=== PATIENT | male | born 1955 | race Caucasian/White ===

== ENCOUNTER 2016-08-23 14:47 | Emergency (ER) | payer MEDICAID ==
[~2016-08-23] VITALS: Ht 182.9 cm; Wt 83.9 kg
[2016-08-23] MEDS ORDERED: LAMI1TAB7 PO (15:14)
[2016-08-23] MEDS ORDERED: trental PO (15:14)
[2016-08-23] MEDS ORDERED: TRAZ100T4 PO (15:14)
[2016-08-23] MEDS ORDERED: CLON-412 PO (15:14)
[2016-08-23] MEDS ORDERED: MIRT30TA2 PO (15:14)
[2016-08-23] MEDS ORDERED: LEVO25TA5 PO (15:14)
[2016-08-23] MEDS ORDERED: ATEN25TA PO (15:14)
[2016-08-23 16:39] LABS: BASO % 0.1 % (0.0-1.0); EOS % 0.4 % (0.0-3.0); LARGE UNSTAINED CELL # 0.1 K/mm3 (0.0-0.4); LARGE UNSTAINED CELL % 0.7 % (0.0-4.0); LYMPH # 0.7 K/mm3 (1.5-4.5); LYMPH % 7.6 % (24.0-44.0); MEAN CORPUSCULAR HEMOGLOBIN 27.5 pg (27.0-33.0); MEAN CORPUSCULAR HGB CONC 32.1 g/dl (32.0-36.5); MEAN CORPUSCULAR VOLUME 85.7 fl (80.0-96.0); MONO # 0.4 K/mm3 (0.0-0.8); MONO % 4.6 % (0.0-5.0); NEUTROPHILS # 7.4 K/mm3 (1.8-7.7); NEUTROPHILS % 86.7 % (36.0-66.0); PLATELET COUNT, AUTOMATED 205 k/mm3 (150-450); RED CELL DISTRIBUTION WIDTH 14.2 % (11.5-14.5); WHITE BLOOD COUNT 8.6 K/mm3 (4.0-10.0)
[2016-08-23 17:03] LABS: ANION GAP 11 MEQ/L (8-16); BLOOD UREA NITROGEN 8 MG/DL (7-18); CALCIUM LEVEL 8.8 MG/DL (8.5-10.1); CARBON DIOXIDE LEVEL 21 MEQ/L (21-32); CHLORIDE LEVEL 105 MEQ/L (98-107); CREATININE FOR GFR 1.08 MG/DL (0.70-1.30); GLOMERULAR FILTRATION RATE > 60.0 (>56); GLUCOSE, FASTING 113 MG/DL (70-105); SODIUM LEVEL 137 MEQ/L (136-145)
[2016-08-23] MEDS ORDERED: MORPHINE 4 MG/ML 1ML SYRINGE IV ONE (17:45)
[2016-08-23] MEDS ORDERED: ONDANSETRON 4MG/2ML VIAL (J2405) IV ONE (18:00)
[2016-08-23] MEDS ORDERED: NS 1,000 ML IV SCH (20:42)
[2016-08-23 21:56] VITALS: BP 120/84
--- NOTE | 2016-08-23 23:00 | REPUSA ---
CLINICAL HISTORY: Right hip fracture. TECHNIQUE: MR right hip. Multiplanar T1 and T2 weighted sequences were obtained COMPARISON: Same-day hip x-ray. MR RIGHT HIP WITHOUT CONTRAST: Pelvis: There is an acute fracture through the posterior aspect of the right acetabulum, producing pr otrusio acetabulum, and widening of the acetabular cup. Additional fractures of the acetabular cup ar e suspected. There is hemarthrosis of the right hip and severe diffuse edema with tracking along the sciatic neurovascular bundle and along the pelvic sidewall. Bladder: Significantly distended. Prostate: 4.3 cm diameter. IMPRESSION: Acute fracture of the right posterior acetabulum, with acute protrusio acetabuli.
--- NOTE | 2016-08-24 08:05 | REP ---
Atraumatic pain. PRIORS: None. There is significant protrusio acetabuli. This represents a significant change when compared to a KUB of 06/26/2007 which included the right hip. This finding is suspicious for a pathological fracture even through information given to me is nontraumatic pain. The findings is concerning and needs to be further investigation. Acute protrusio acetabuli is consistent with fracture. Signed by Brandon Aiken DO 08/24/2016 08:50 A
== END 2016-08-23 21:58 | disposition short-term general hospital (02) ==
LOC: EDBD 14:47 → M ED 15:56
DX: S32.401A Unspecified fracture of right acetabulum, initial encounter for closed fracture (principal); X58.XXXA Exposure to other specified factors, initial encounter; Y92.89 Other specified places as the place of occurrence of the external cause; Y93.89 Activity, other specified; Y99.9 Unspecified external cause status
CPT/HCPCS: 36415; 73502; 73723; 80048; 85025; 93041; 96374; 96375; 99285; A9576; J2405; J3360

== ENCOUNTER 2016-10-03 15:19 | Emergency (ER) | payer MEDICAID ==
[~2016-10-03] VITALS: Ht 182.9 cm; Wt 83.9 kg
[2016-10-03 15:19] VITALS: BP 122/93
[~2016-10-03 15:19] MED LIST: ATEN25TA PO; CLON-412 PO; LAMI1TAB7 PO; LEVO25TA5 PO; MIRT30TA2 PO; TRAZ100T4 PO; trental PO
[2016-10-03] MEDS ORDERED: CALC500T36 PO (15:31)
[2016-10-03] MEDS ORDERED: OXYC1TAB23 PO (15:31)
[2016-10-03] MEDS ORDERED: KEFL500C7 PO (15:44)
[2016-10-03] MEDS ORDERED: CEPHALEXIN 500 MG CAP PO ONE (15:45)
== END 2016-10-03 16:12 | disposition home or self-care (01) ==
LOC: M ED 15:46
DX: L03.115 Cellulitis of right lower limb (principal)

== ENCOUNTER 2016-10-05 23:11 | Inpatient (IN) | payer MEDICAID ==
[~2016-10-05] VITALS: Ht 182.9 cm; Wt 84.3 kg
[2016-10-05] MEDS: traZODone 100 MG TAB PO SCH (21:00)
[2016-10-05] MEDS: MIRTAZAPINE 15 MG TAB PO SCH (21:00)
[~2016-10-05 23:11] MED LIST changes: +CALC500T36 PO; +KEFL500C7 PO; +OXYC1TAB23 PO
[2016-10-05] MEDS ORDERED: NS 1,000 ML IV ONE (23:45)
[2016-10-06] MEDS ORDERED: ACETAMINOPHEN 325 MG TAB PO ONE
[2016-10-06] MEDS ORDERED: NEXI40CA PO (00:01)
[2016-10-06] MEDS ORDERED: OXYC-517 PO (00:01)
[2016-10-06] MEDS ORDERED: ASPI325T28 PO (00:01)
[2016-10-06] MEDS ORDERED: VITA500C24 PO (00:01)
[2016-10-06] MEDS ORDERED: VITAD1000T PO (00:01)
[2016-10-06] MEDS ORDERED: NICOINH INH (00:01)
[2016-10-06] MEDS ORDERED: CYCL10TA PO (00:01)
[2016-10-06] MEDS ORDERED: PENT400T19 PO (00:01)
[2016-10-06] MEDS ORDERED: CALC500C16 PO (00:01)
[2016-10-06] MEDS ORDERED: FOLI1TAB2 PO (00:01)
[2016-10-06] MEDS ORDERED: MAPA325T2 PO (00:01)
[2016-10-06] MEDS ORDERED: THIA100TA PO (00:01)
[2016-10-06] MEDS ORDERED: GABA-282 PO (00:01)
[2016-10-06] MEDS ORDERED: MIRT30TA3 PO (00:01)
[2016-10-06 00:14] LABS: BASO % 0.1 % (0.0-1.0); EOS % 0.1 % (0.0-3.0); LARGE UNSTAINED CELL # 0.3 K/mm3 (0.0-0.4); LARGE UNSTAINED CELL % 2.1 % (0.0-4.0); LYMPH # 0.6 K/mm3 (1.5-4.5); LYMPH % 4.7 % (24.0-44.0); MEAN CORPUSCULAR HEMOGLOBIN 26.9 pg (27.0-33.0); MEAN CORPUSCULAR HGB CONC 31.7 g/dl (32.0-36.5); MONO # 0.8 K/mm3 (0.0-0.8); MONO % 6.5 % (0.0-5.0); NEUTROPHILS # 10.9 K/mm3 (1.8-7.7); NEUTROPHILS % 86.6 % (36.0-66.0); PLATELET COUNT, AUTOMATED 301 k/mm3 (150-450); RED CELL DISTRIBUTION WIDTH 14.6 % (11.5-14.5); WHITE BLOOD COUNT 12.6 K/mm3 (4.0-10.0)
[2016-10-06 01:16] LABS: ALBUMIN 3.1 GM/DL (3.2-5.2); ALBUMIN/GLOBULIN RATIO 0.78 (1.00-1.93); ALKALINE PHOSPHATASE 177 U/L (45-117); ALT/SGPT 13 U/L (12-78); ANION GAP 10 MEQ/L (8-16); AST/SGOT 13 U/L (15-37); BILIRUBIN,DIRECT 0.3 MG/DL (0.0-0.2); BILIRUBIN,TOTAL 0.8 MG/DL (0.2-1.0); BLOOD UREA NITROGEN 14 MG/DL (7-18); CALCIUM LEVEL 9.3 MG/DL (8.5-10.1); CARBON DIOXIDE LEVEL 22 MEQ/L (21-32); CHLORIDE LEVEL 101 MEQ/L (98-107); CREATININE FOR GFR 1.19 MG/DL (0.70-1.30); GLOMERULAR FILTRATION RATE > 60.0 (>56); GLUCOSE, FASTING 96 MG/DL (70-105); SODIUM LEVEL 133 MEQ/L (136-145); TOTAL PROTEIN 7.1 GM/DL (6.4-8.2)
[2016-10-06] MEDS ORDERED: IMIPENEM/CILASTATIN 500 MG in D5W MINI-BAG PLUS 100 ML IV ONE (02:45)
[2016-10-06] MEDS ORDERED: VANCOMYCIN HCL 750 MG, VIAL MATE ADAPTER 1 EACH in D5W 250 ML IV ONE (02:45)
[2016-10-06] MEDS ORDERED: ACETAMINOPHEN TAB 650MG DOSE (2X325MG) PO PRN (04:00)
[2016-10-06 04:16] LABS: BASO % 0.1 % (0.0-1.0); EOS # 0.1 K/mm3 (0.0-0.50); EOS % 0.5 % (0.0-3.0); LARGE UNSTAINED CELL # 0.2 K/mm3 (0.0-0.4); LYMPH # 1.1 K/mm3 (1.5-4.5); LYMPH % 7.1 % (24.0-44.0); MEAN CORPUSCULAR HEMOGLOBIN 26.7 pg (27.0-33.0); MEAN CORPUSCULAR HGB CONC 31.8 g/dl (32.0-36.5); MEAN CORPUSCULAR VOLUME 84.1 fl (80.0-96.0); MONO # 0.9 K/mm3 (0.0-0.8); MONO % 7.5 % (0.0-5.0); NEUTROPHILS # 9.7 K/mm3 (1.8-7.7); NEUTROPHILS % 82.9 % (36.0-66.0); PLATELET COUNT, AUTOMATED 265 k/mm3 (150-450); RED CELL DISTRIBUTION WIDTH 14.6 % (11.5-14.5); WHITE BLOOD COUNT 11.7 K/mm3 (4.0-10.0)
[2016-10-06 04:28] LABS: METHADONE URINE NEGATIVE (NEGATIVE)
[2016-10-06 04:35] LABS: ERYTHROCYTE SEDIMENTATION RATE 128 mm/hr (0-20)
[2016-10-06 04:38] LABS: ALBUMIN 2.6 GM/DL (3.2-5.2); ALBUMIN/GLOBULIN RATIO 0.58 (1.00-1.93); ALKALINE PHOSPHATASE 159 U/L (45-117); ALT/SGPT 12 U/L (12-78); ANION GAP 8 MEQ/L (8-16); AST/SGOT 12 U/L (15-37); BILIRUBIN,TOTAL 0.5 MG/DL (0.2-1.0); BLOOD UREA NITROGEN 11 MG/DL (7-18); CALCIUM LEVEL 8.6 MG/DL (8.5-10.1); CARBON DIOXIDE LEVEL 24 MEQ/L (21-32); CHLORIDE LEVEL 105 MEQ/L (98-107); CREATININE FOR GFR 1.03 MG/DL (0.70-1.30); GLOMERULAR FILTRATION RATE > 60.0 (>56); GLUCOSE, FASTING 117 MG/DL (70-105); MAGNESIUM LEVEL 1.7 MG/DL (1.8-2.4); POTASSIUM SERUM 3.7 MEQ/L (3.5-5.1); SODIUM LEVEL 137 MEQ/L (136-145); TOTAL PROTEIN 7.1 GM/DL (6.4-8.2)
[2016-10-06 04:45] VITALS: BP 110/76
[2016-10-06] MEDS: NS 1,000 ML IV SCH ×2 (05:47→14:05)
[2016-10-06] MEDS ORDERED: CALCIUM CARBONATE 500 MG CHEW U/D PO PRN (06:00)
[2016-10-06] MEDS ORDERED: CYCLOBENZAPRINE 10 MG TAB PO PRN (06:00)
--- NOTE | 2016-10-06 06:27 | PHACANCOPD ---
PHARMACY VANCOMYCIN DOSING Pt Demographics Demographics Patient Age:60 , Weight:81.800 , Gender: male Adjusted Body Weight Date: 10/06/16, Adjusted Body Weight: [80] Kg Events Past 24 Hours Events Past 24 Hours: NO: Dialysis, Diuretic Therapy, Change in CrCl, Fever, Elevation in WBC, Pending Diagnostics, Pending Procedures, Other Vancomycin Vancomycin Target Ranges: 15-20 mcg/ml Vancomycin Load Y/N: Yes Load Dose Date Time Vancomycin Load Dose: 1750MG Date: 10-06 Time: 0600 Vancomycin Dose Date: 10/06/16. Current Vancomycin Dose: [1000MG Q8H] Intermittent Dosing?: No Labs Labs Item Value Date Time White Blood Count 11.7 K/mm3 H 10/06/16 0402 Creatinine 1.03 MG/DL 10/06/16 0402 Blood Urea Nitrogen 11 MG/DL 10/06/16 0402 Vital Signs Label Value Date Time Patient Temperature 100.6 degrees F 10/06/16 044 Temperature Source Temporal 10/06/16 044 Micro Microbiology 10/06/16 Blood Culture, Received Pending 10/05/16 Blood Culture, Received Pending 10/06/16 Urine Culture, Received Pending Creatinine Clearance Date:10/06/16. Creatinine Clearance: [84]. Pending Labs Trough 10-06 @2100 Assessment and Plan Maintaining Current Dose?: Yes Reason for dose change: No Dose Change Pharmacist Note Pharmacist Note Date: 10/06/16. Pharmacist note:Dosed at 1000mg q8h with a trough ordered for 05 @2100. Will continue to monitor and make adjustments as needed. APRYL AREVALO [facility] October 06, 2016 06:27
[2016-10-06] MEDS: VANCOMYCIN HCL 1,000 MG, VIAL MATE ADAPTER 1 EACH in D5W 250 ML IV SCH ×3 (06:38→21:49)
--- NOTE | 2016-10-06 06:46 | HPE ---
DATE OF ADMISSION: 10/06/2016 PRIMARY CARE PROVIDER: Lona Bustamante REASON FOR ADMISSION: Fever, hypotension. HISTORY OF PRESENT ILLNESS: The patient is 60-year-old male with past medical history significant for hypothyroidism, recent fall with right hip fracture status post surgery, history of alcohol abuse, and hypertension who presented to the emergency room today after a ground-level fall. He stated he gotten out of bed and did not use his walker and fell. Upon arrival to the emergency room, the patient was confused and a poor historian. He stated he had fallen last month resulting in a hip fracture and surgery at [facility]. In the emergency room, the patient was found to have a temperature of 102.2. He was also found to be hypotensive and tachycardiac. The hospitalist was called for the admission. REVIEW OF SYSTEMS: The patient only complained of right hip pain. He denied any chest pain or palpitation. Denied any shortness of breath or cough. No nausea or vomiting. Denied any abdominal pain. Was complaining of lower extremity swelling, stated that it had been like that since the surgery last month, but no pain in the lower extremities and no focal deficits. PAST MEDICAL HISTORY: 1. Hypothyroidism. 2. Hypertension. 3. Hip surgery. 4. history of alcohol dependence 5. history of alcohol hepatitis 6. history of seizures PAST SURGICAL HISTORY: 1. Right hip surgery. 2. Breast biopsy/ ALLERGIES: - PENICILLIN (reaction unknown) SOCIAL HISTORY: The patient used to drink heavily in the past, but stated he quit over a year ago. He smokes 10 cigarettes a day for 40 years. He lives at home alone. Denies any drug use. FAMILY HISTORY: Noncontributory. HOME MEDICATIONS: - Tylenol 2 tablets as needed pain - vitamin C 500 mg daily - aspirin 325 mg daily - atenolol 25 mg by mouth daily - cyclobenzaprine 1 tablet by mouth three times a day as needed pain - Nexium 40 mg daily - folic acid 1 mg daily - gabapentin 300 mg by mouth three times a day - Lamictal 50 mg by mouth twice a day - Synthroid 25 mcg by mouth daily - mirtazapine 30 mg at bedtime - oxycodone 1 tablet by mouth every 4 hours as needed for pain - pentoxifylline 400 mg by mouth three times a day - thiamine 100 mg by mouth daily - trazodone 100 mg by mouth at bedtime - vitamin D3 2 tablets by mouth daily PHYSICAL EXAMINATION: Vitals: Temperature was 102.2. Heart rate 127 initially. Blood pressure was 90/60. Pulse oximetry 94% on room air. Respiratory rate 20. HEENT: Pupils equal round and reactive to light and accommodation. Neck: Supple. No jugular venous distention (JVD). Lungs: Clear to auscultation (CTA) bilaterally. Cardiac: Irregular rate and rhythm. Abdomen: Soft, nontender, nondistended. Extremities: Incision site over right hip appears clean, dry, intact. Slightly warm, nontender to palpation. Neurologic: Cranial nerves II-XII grossly intact. LABORATORY FINDINGS: WBC 12.6, hemoglobin 8.2, hematocrit 25.8, platelet count 301. Sodium initially was 133, potassium 4, chloride 101, BUN 14, creatinine 1.19, fasting glucose less than 60, AST 13, ALT 13, C-reactive protein 23. Urinalysis was positive +1 bacteria. Toxicology screen positive for opiates, negative for alcohol. The patient underwent a CT of the hip pending read. ASSESSMENT/PLAN: 1. Sepsis, unknown etiology at this time. The patient has negative lactic acid of 1, but he had a fever of 102.2, hypotension and tachycardia. He was started on imipenem and vancomycin in the emergency room. We will continue. Blood and urine cultures are pending. The patient denies any upper respiratory tract infection at this time. Await x-ray of the hip. 2. History of recent hip surgery at [facility]. 3. Fall. We will consult physical therapy (PT) for evaluation and treat. 4. Hypertension. We will hold the patient's atenolol at this time due to hypotension secondary to sepsis. 5. History of alcohol dependence 6. History of alcoholic hepatitis 7. History of seizures; resume home medications 8. Deep vein thrombosis (DVT) prophylaxis. Lovenox 40 mg subcutaneously daily. MTDD
--- NOTE | 2016-10-06 07:56 | REP ---
Clinical: Fever. Technique: AP and lateral. Comparison: 09/05/2014. Findings: Mediastinum and cardiac silhouette are stable. Moderate hiatal hernia is again suggested. Lung joseph demonstrate chronic interstitial changes. No focal consolidation, effusion, or pneumothorax. Healed left rib fractures represent a relative change compared to prior examination from 2014. Impression: Stable hiatal hernia. Left rib fractures are relatively new compared to prior examination. No focal consolidation. Signed by Reynold oMura MD 10/06/2016 07:48 A
[2016-10-06 08:00] VITALS: BP 97/66
--- NOTE | 2016-10-06 08:01 | REP ---
Clinical: Trauma. Technique: AP view of the pelvis with neutral and frog lateral views of the right hip. Findings: Evidence for prior right pelvic fracture fixation with orthopedic hardware in satisfactory position. Age-related degenerative changes are noted. There is no evidence for acute fracture or dislocation. Impression: No acute fracture dislocation identified. Signed by Reynold Moura MD 10/06/2016 07:53 A
[2016-10-06] MEDS: VITAMIN D 1,000 INTERNATIONAL UNITS TABLET PO SCH (08:23)
[2016-10-06] MEDS: PENTOXIFYLLINE 400 MG TAB PO SCH ×3 (08:23→20:27)
[2016-10-06] MEDS: FOLIC ACID 1 MG TAB PO SCH (08:23)
[2016-10-06] MEDS: PANTOPRAZOLE 40MG TAB (PROTONIX) PO SCH (08:24)
[2016-10-06] MEDS: ASCORBIC ACID 500 MG TAB PO SCH (08:24)
[2016-10-06] MEDS: THIAMINE 100 MG TAB PO SCH (08:24)
[2016-10-06] MEDS: GABAPENTIN 300 MG CAP PO SCH ×3 (08:24→20:27)
[2016-10-06] MEDS: lamoTRIgine 100MG TAB PO SCH ×2 (08:24→20:27)
[2016-10-06] MEDS: ENOXAPARIN 40 MG/0.4 ML SYRINGE (J1650) SC SCH (08:25)
[2016-10-06] MEDS: IMIPENEM/CILASTATIN 250 MG in D5W MINI-BAG PLUS 100 ML IV SCH ×3 (08:25→20:25)
[2016-10-06] MEDS ORDERED: ENOXAPARIN 40 MG/0.4 ML SYRINGE (J1650) SC SCH (09:00)
--- NOTE | 2016-10-06 09:10 | REP ---
Clinical: Bilateral lower extremity swelling . Technique: Gonzalez scale and color Doppler evaluation using linear high frequency transducer. Findings: Ultrasound examination of the right and left lower extremity deep venous structures from the common femoral vein to the popliteal vein demonstrates normal compressibility flow and wave patterns in response to respiration and augmentation. There is no evidence for deep venous thrombosis. Impression: No evidence for deep venous thrombosis. Signed by Reynold Moura MD 10/06/2016 09:01 A
--- NOTE | 2016-10-06 10:32 | CR.PDOC ---
[facility] Consultation Consultation DATE OF CONSULTATION: October 06, 2016 at 04:00 REFERRING PROVIDER: Dr. Fraga ATTENDING PHYSICIAN: Dr. Jatinder Bal REASON FOR CONSULTATION/CHIEF COMPLAINT: feers s/p R acetabular ORIF. HISTORY OF PRESENT ILLNESS: Patient is a 60y/o alcoholic male who is 2 months s/ p R acetabular ORIF at [facility] who had a syncopal fall at his home last night. He was brought to the [facility] ER by ambulance and found to have fever and tachycardia and was admitted to the PCU. Patient reports delayed wound healing of the right hip with drainage up until a few weeks ago but has since stopped. He does report chronic pain from the surgical procedure but no recent acute increase in pain. Patient has no recollection of the fall. ALLERGIES: Please see below. HOME MEDICATIONS: Please see below. PAST MEDICAL HISTORY: 1. hypothyroidism. PAST SURGICAL HISTORY: 1. ORIF R acetabulum per HPI 2. breast biopsy FAMILY HISTORY: non contributory SOCIAL HISTORY: Lives alone in [place], [place]. Previously worked construction but currently unemployed. 1/2 ppd smoker. heavy daily drinker. REVIEW OF SYSTEMS: CONSTITUTIONAL: + fevers. CARDIOVASCULAR: no chest pain or palpitations. RESPIRATORY: no cough, wheeze, SOB. GENITOURINARY: no pain or burning with urination. MUSCULOSKELETAL: + recent acetabular ORIF per HPI. GASTROINTESTINAL: no nausea, vomiting, diarrhea. PHYSICAL EXAMINATION: VITAL SIGNS: Please see below. GENERAL APPEARANCE: appears older than stated age, NAD. HEENT: normocephalic, atraumatic. RESPIRATORY: non labored breathing. CARDIOVASCULAR: 2+ DP, PT pulses RLE. EXTREMITIES: R hip wound c/d/i/. minimal surrounding erythema, induration, or drainage. No pain with logroll of the hip. No pain with axial load. NEUROLOGICAL: sensation/motor intact in RLE tibial, sural, saphenous, SPN, DPN distribution. LABORATORY DATA: Please see below. Plain radiographs of the right hip demonstrate acetabular ORIF fixation construct with apparent anatomic reduction. No evidence of hardware loosening or failure. DVT ultrasound demonstrates no evidence of RLE VTE ASSESSMENT/PLAN: 60 y/o male with history of R aetabular ORIF who sustained syncopal fall with low grade fevers. No drainage from wound. Acute R hip post op infection unlikely. 1. Given the delayed wound healing, it is possible that there is a chronic infection, however given that there is no acute drainage from the wound or surrounding erythema, and there is no pain with hip logroll or axial load, an acute hip infection is an unlikely source for his fevers and tachycardia. 2. Recommend continued workup of his fevers/tachycardia per PCU team 3. Patient has scheduled follow up with operative surgeon in [place] on 14 October which should be maintained. 4. If primary team does not find another source, recommend transfer to [facility] for management of R acetabulum Vital Signs/I&O Vital Signs Date Time Temp Pulse Resp B/P (MAP) Pulse Ox O2 Delivery O2 Flow Rate FiO2 10/06/16 08:00 100.8 133 18 97/66 (76) 98 Room Air I&O- Last 24 Hours up to 6 AM 10/06/16 06:00 Intake Total 1540 ml Output Total 900 ml Balance 640 ml Laboratory Data Labs 24H Laboratory Tests 2 10/05/16 23:54: White Blood Count 12.6H, Red Blood Count 3.04L, Hemoglobin 8.2L, Hematocrit 25.8L, Mean Corpuscular Volume 85.0, Mean Corpuscular Hemoglobin 26.9L, Mean Corpuscular Hemoglobin Concent 31.7L, Red Cell Distribution Width 14.6H, Platelet Count 301, Neutrophils (%) (Auto) 86.6H, Lymphocytes (%) (Auto) 4.7L, Monocytes (%) (Auto) 6.5H, Eosinophils (%) (Auto) 0.1, Basophils (%) (Auto) 0.1 , Neutrophils # (Auto) 10.9H, Lymphocytes # (Auto) 0.6L, Monocytes # (Auto) 0.8 , Eosinophils # (Auto) 0.0, Basophils # (Auto) 0.0, Large Unclassified Cells % 2.1, Large Unclassified Cells # 0.3, Anion Gap 10, Glomerular Filtration Rate > 60.0, Lactic Acid Level 1.0, Calcium Level 9.3, Aspartate Amino Transf (AST/SGOT ) 13L, Alanine Aminotransferase (ALT/SGPT) 13, Alkaline Phosphatase 177H, Total Bilirubin 0.8, Direct Bilirubin 0.3H, Total Protein 7.1, Albumin 3.1L, Albumin/ Globulin Ratio 0.78L, Ethyl Alcohol Level < 0.003 10/06/16 02:02: Urine Appearance CLEAR, Urine Color YELLOW, Urine pH 6.0, Urine Specific [place] 1.004, Urine Protein NEGATIVE, Urine Glucose (UA) NEGATIVE, Urine Ketones TRACEH, Urine Urobilinogen 0.2, Urine Bilirubin NEGATIVE, Urine Leukocyte Esterase NEGATIVE, Urine Blood NEGATIVE, Urine Nitrite NEGATIVE, Urine WBC (Auto) 0, Urine RBC (Auto) 2, Urine Hyaline Casts (Auto) 0, Urine Bacteria (Auto) 1+H, Urine Squamous Epithelial Cells 0, Urine Sperm (Auto) , Urine Amphetamines Screen NEGATIVE, Urine Benzodiazepines Screen NEGATIVE, Urine Opiates Screen POSITIVEH, Urine Methadone Screen NEGATIVE, Urine Barbiturates Screen NEGATIVE, Urine Phencyclidine Screen NEGATIVE, Urine Cocaine Metabolite Screen NEGATIVE, Urine Cannabinoids Screen NEGATIVE 10/06/16 04:02: White Blood Count 11.7H, Red Blood Count 2.88L, Hemoglobin 7.7L, Hematocrit 24.2L, Mean Corpuscular Volume 84.1, Mean Corpuscular Hemoglobin 26.7L, Mean Corpuscular Hemoglobin Concent 31.8L, Red Cell Distribution Width 14.6H, Platelet Count 265, Neutrophils (%) (Auto) 82.9H, Lymphocytes (%) (Auto) 7.1L, Monocytes (%) (Auto) 7.5H, Eosinophils (%) (Auto) 0.5, Basophils (%) (Auto) 0.1 , Neutrophils # (Auto) 9.7H, Lymphocytes # (Auto) 1.1L, Monocytes # (Auto) 0.9H , Eosinophils # (Auto) 0.1, Basophils # (Auto) 0.0, Large Unclassified Cells % 2.0, Large Unclassified Cells # 0.2, Anion Gap 8, Glomerular Filtration Rate > 60.0, Calcium Level 8.6, Aspartate Amino Transf (AST/SGOT) 12L, Alanine Aminotransferase (ALT/SGPT) 12, Alkaline Phosphatase 159H, Total Bilirubin 0.5, Total Protein 7.1, Albumin 2.6L, Albumin/Globulin Ratio 0.58L, Erythrocyte Sedimentation Rate 128H, Blood Urea Nitrogen 11, Creatinine 1.03, Sodium Level 137, Potassium Level 3.7, Chloride Level 105, Carbon Dioxide Level 24, Magnesium Level 1.7L, C-Reactive Protein, Quantitative 23.10H CBC/BMP Laboratory Tests 10/05/16 23:54 Red Blood Count 3.04 L, Mean Corpuscular Volume 85.0, Mean Corpuscular Hemoglobin 26.9 L, Mean Corpuscular Hemoglobin Concent 31.7 L, Red Cell Distribution Width 14.6 H, Neutrophils (%) (Auto) 86.6 H, Lymphocytes (%) (Auto ) 4.7 L, Monocytes (%) (Auto) 6.5 H, Eosinophils (%) (Auto) 0.1, Basophils (%) ( Auto) 0.1, Neutrophils # (Auto) 10.9 H, Lymphocytes # (Auto) 0.6 L, Monocytes # (Auto) 0.8, Eosinophils # (Auto) 0.0, Basophils # (Auto) 0.0 10/06/16 04:02 Red Blood Count 2.88 L, Mean Corpuscular Volume 84.1, Mean Corpuscular Hemoglobin 26.7 L, Mean Corpuscular Hemoglobin Concent 31.8 L, Red Cell Distribution Width 14.6 H, Neutrophils (%) (Auto) 82.9 H, Lymphocytes (%) (Auto ) 7.1 L, Monocytes (%) (Auto) 7.5 H, Eosinophils (%) (Auto) 0.5, Basophils (%) ( Auto) 0.1, Neutrophils # (Auto) 9.7 H, Lymphocytes # (Auto) 1.1 L, Monocytes # ( Auto) 0.9 H, Eosinophils # (Auto) 0.1, Basophils # (Auto) 0.0, Calcium Level 8.6 , Aspartate Amino Transf (AST/SGOT) 12 L, Alanine Aminotransferase (ALT/SGPT) 12 , Alkaline Phosphatase 159 H, Total Bilirubin 0.5, Total Protein 7.1, Albumin 2.6 L Microbiology Microbiology 10/06/16 Blood Culture, Received Pending 10/05/16 Blood Culture, Received Pending 10/06/16 Urine Culture, Received Pending Allergies Coded Allergies: Penicillins (Verified Allergy, Unknown, FATHER IS ALLERGIC, PATIENT HAS NEVER TAKEN, 10/03/16) Home Medications Scheduled (Nicotrol Inhaler) 10 Mg Inh, 1 PUFF INH DAILY, (Reported) Ascorbic Acid (Vitamin C) 500 Mg Cap, 500 MG PO DAILY, (Reported) Aspirin (Aspirin) 325 Mg Tab, 325 MG PO DAILY, (Reported) Atenolol (Atenolol) 25 Mg Tab, 25 MG PO DAILY, (Reported) Esomeprazole Magnesium Trihydr (Nexium) 40 Mg Cap, 40 MG PO DAILY, (Reported) Folic Acid (Folic Acid) 1 Mg Tab, 1 MG PO DAILY, (Reported) Gabapentin (Gabapentin) 300 Mg Cap, 300 MG PO TID, (Reported) Lamotrigine (Lamictal) 100 Mg Tab, 50 MG PO BID, (Reported) Levothyroxine Sodium (Synthroid) 25 Mcg Tab, 25 MCG PO DAILY, (Reported) Mirtazapine (Mirtazapine) 30 Mg Tab, 30 MG PO QHS, (Reported) Pentoxifylline (Pentoxifylline Cr) 400 Mg Tab, 400 MG PO TID, (Reported) Thiamine Hcl (Thiamine Hcl) 100 Mg Tab, 100 MG PO DAILY, (Reported) Trazodone HCl (Trazodone HCl) 100 Mg Tab, 100 MG PO QHS, (Reported) Vitamin D (Vitamin D3) 1,000 Units Tab, 2 TABS PO DAILY, (Reported) Scheduled PRN Acetaminophen (Mapap) 325 Mg Tab, 2 TABS PO Q6HP PRN for PAIN, (Reported) Calcium Carbonate (Calcium Carbonate) 500 Mg Chw, 500 MG PO TIDP PRN for INDIGESTION, (Reported) Cyclobenzaprine HCl (Cyclobenzaprine HCl) 10 Mg Tab, 1 TAB PO TIDP PRN for PAIN, (Reported) Oxycodone HCl (Oxycodone HCl) 5 Mg Tab, 1 TAB PO Q4HP PRN for PAIN, (Reported) JR BAL MD October 06, 2016 10:21
[2016-10-06 12:00] VITALS: BP 121/67
--- NOTE | 2016-10-06 13:23 | ECHO ---
DATE OF PROCEDURE: 10/06/2016 DATE OF : 1955 AGE: 60 REFERRING PROVIDER: Dr. Fraga. PATIENT LOCATION: Room 3229 REASON FOR ECHOCARDIOGRAM: Atrial fibrillation, edema. 2D MEASUREMENTS: IVS: 1.2 cm LV: 4.8 cm LVPW: 1.2 cm LA: 4.5 cm Aorta: 3.3 cm RV: 3.2 cm IVC: 2.7 cm DOPPLER MEASUREMENTS: Mitral E: 1.39 Maximum tricuspid valve velocity: 3.3 m/s 2D COMMENTS: 1. Normal left ventricular size, wall thickness and normal global left ventricular systolic function. The estimated global left ventricular systolic ejection fraction is 65%. 2. Mildly enlarged left atrium. Probably moderately enlarged right atrium. Normal right ventricle. 3. The atrial septum appeared to be normal without evidence of defect or shunt. 4. Normal aortic root. 5. No pericardial effusion seen. 6. Mildly calcified aortic valve with normal leaflet excursion. Mildly calcified mitral annulus with normal anterior mitral valve leaflet motion. Normal tricuspid valve and pulmonic valve. The proximal pulmonary artery branches were not well visualized. 7. The inferior vena cava was dilated, central venous pressure is most likely elevated. DOPPLER: It detects moderately severe mitral regurgitation, moderately severe tricuspid regurgitation. The calculated pulmonary artery systolic pressure varied between 40-50 mmHg. Assessment of the left ventricular diastolic function was limited in view of the underlying atrial fibrillation. IMPRESSION: 1. Normal global left ventricular systolic function. 2. Aortic valve sclerosis without stenosis or aortic regurgitation. 3. Mildly enlarged left atrium with moderately severe mitral regurgitation. 4. Moderately severe tricuspid regurgitation with dilated right atrium and moderately severe pulmonary hypertension. 5. There are some features of elevated central venous pressure. MTDD
[2016-10-06] MEDS ORDERED: MAGNESIUM OXIDE 400 MG TAB (MAG-OX) PO ONE (13:45)
[2016-10-06] MEDS: PERCOCET 5MG/325MG TAB PO PRN ×2 (14:07→20:28)
[2016-10-06 16:00] VITALS: BP 103/66
[2016-10-06 20:00] VITALS: BP 119/65
[2016-10-06] MEDS: MIRTAZAPINE 15 MG TAB PO SCH (20:27)
[2016-10-06] MEDS: METOPROLOL 5 MG/5 ML VIAL IV SCH (21:49)
[2016-10-06] MEDS: traZODone 100 MG TAB PO SCH (21:49)
[2016-10-07] VITALS (8 sets, daily range): BP systolic 112–128; BP diastolic 67–86
[2016-10-07] MEDS: IMIPENEM/CILASTATIN 250 MG in D5W MINI-BAG PLUS 100 ML IV SCH (02:44)
[2016-10-07] MEDS: PERCOCET 5MG/325MG TAB PO PRN ×3 (02:44→20:14)
[2016-10-07] MEDS: METOPROLOL 5 MG/5 ML VIAL IV SCH (02:47)
[2016-10-07] MEDS: VANCOMYCIN HCL 1,000 MG, VIAL MATE ADAPTER 1 EACH in D5W 250 ML IV SCH (05:25)
[2016-10-07 05:32] LABS: MEAN CORPUSCULAR HEMOGLOBIN 26.2 pg (27.0-33.0); MEAN CORPUSCULAR HGB CONC 31.2 g/dl (32.0-36.5); RED CELL DISTRIBUTION WIDTH 14.7 % (11.5-14.5); WHITE BLOOD COUNT 9.2 K/mm3 (4.0-10.0)
[2016-10-07 05:57] LABS: ALBUMIN 2.4 GM/DL (3.2-5.2); ALBUMIN/GLOBULIN RATIO 0.55 (1.00-1.93); ALKALINE PHOSPHATASE 462 U/L (45-117); ALT/SGPT 34 U/L (12-78); ANION GAP 8 MEQ/L (8-16); AST/SGOT 38 U/L (15-37); BILIRUBIN,TOTAL 0.7 MG/DL (0.2-1.0); BLOOD UREA NITROGEN 7 MG/DL (7-18); CALCIUM LEVEL 8.4 MG/DL (8.5-10.1); CARBON DIOXIDE LEVEL 23 MEQ/L (21-32); CHLORIDE LEVEL 107 MEQ/L (98-107); CREATININE FOR GFR 0.68 MG/DL (0.70-1.30); GLOMERULAR FILTRATION RATE > 60.0 (>56); GLUCOSE, FASTING 119 MG/DL (70-105); MAGNESIUM LEVEL 1.7 MG/DL (1.8-2.4); POTASSIUM SERUM 3.5 MEQ/L (3.5-5.1); SODIUM LEVEL 138 MEQ/L (136-145); TOTAL PROTEIN 6.8 GM/DL (6.4-8.2)
[2016-10-07] MEDS ORDERED: LEVOTHYROXINE 0.025 MG TAB (25 MCG) PO SCH (06:00)
[2016-10-07] MEDS ORDERED: POTASSIUM CHLORIDE 10 MEQ SR TABLET PO ONE (09:15)
[2016-10-07] MEDS ORDERED: SODIUM CHLORIDE 0.9% 1000 ML IV ONE (09:15)
[2016-10-07] MEDS ORDERED: MEROPENEM INJ 1 GM in D5W MINI-BAG PLUS 100 ML IV SCH ×2 (10:00→21:00)
[2016-10-07] MEDS: MAG SULF 1GM/100ML (MAG RUN) 1 GM in APPROPRIATE DILUENT 1 EA IV SCH ×2 (10:00→11:05)
[2016-10-07] MEDS: NS 1,000 ML IV SCH ×3 (11:00→18:34)
[2016-10-07] MEDS ORDERED: PERCOCET 5MG/325MG TAB PO PRN ×2 (11:00→13:45)
[2016-10-07] MEDS: lamoTRIgine 100MG TAB PO SCH ×2 (11:03→20:10)
[2016-10-07] MEDS: FOLIC ACID 1 MG TAB PO SCH (11:03)
[2016-10-07] MEDS: ASCORBIC ACID 500 MG TAB PO SCH (11:04)
[2016-10-07] MEDS: GABAPENTIN 300 MG CAP PO SCH ×3 (11:04→20:11)
[2016-10-07] MEDS: VITAMIN D 1,000 INTERNATIONAL UNITS TABLET PO SCH (11:04)
[2016-10-07] MEDS: THIAMINE 100 MG TAB PO SCH (11:04)
[2016-10-07] MEDS: PENTOXIFYLLINE 400 MG TAB PO SCH ×3 (11:04→20:12)
[2016-10-07] MEDS: PANTOPRAZOLE 40MG TAB (PROTONIX) PO SCH (11:04)
[2016-10-07] MEDS: ENOXAPARIN 40 MG/0.4 ML SYRINGE (J1650) SC SCH (11:05)
[2016-10-07] MEDS ORDERED: PERCOCET 5MG/325MG TAB PO ONE (11:15)
--- NOTE | 2016-10-07 11:22 | REP ---
MRI RIGHT HIP WITH AND WITHOUT CONTRAST: TECHNIQUE: The multiple sequences obtained pre and post IV administration of 17 mL gadolinium. There is metallic internal fixation in the region of the right hip joint. This causes extreme artifact obscuring underlying right hip structures. On the STIR images, there does appear to be high signal edema involving the soft tissues surrounding the right hip. Underlying infection cannot be excluded. Underlying abscess or osteomyelitis at the right is not excluded, again obscured by the extensive metallic artifact. Other visualized osseous structures of the left hemipelvis demonstrate normal marrow signal. Other visualized soft tissue structures appear unremarkable. IMPRESSION: Diffuse edema in the soft tissues surrounding the right hip. Extensive metallic artifact in the right hip joint obscures underlying structures. I cannot exclude underlying osteomyelitis or abscess in the region of the right hip. Signed by Steve Gonzalez MD 10/09/2016 06:54 P
[2016-10-07] MEDS ORDERED: MERO1INJ IV (12:59)
[2016-10-07] MEDS ORDERED: VANC10005 INJ (12:59)
--- NOTE | 2016-10-07 14:50 | DS.PDOC ---
Discharge Summary General Date of Admission October 06, 2016 at 04:01 Date of Discharge 10/07/16 Attending Physician: DIEGO PARRISH MD Specialist/Consultants Involve: JR BAL MD Discharge Summary PROCEDURES PERFORMED DURING STAY: None. ADMITTING/DISCHARGE DIAGNOSES: 1. Sepsis likely 2/2 Infected Right Hip s/p acetabulum fx repair 2. Significant anemia s/p hip repair - given 2U PRBC. 3. L Rib fracture status post fall 4. Hypothyroidism. 5. Hypertension. 6. Hip surgery. 7. History of alcohol dependence 8. History of alcohol hepatitis 9. History of seizures 10. H/o Atrial Fibrillation - follows up with Dr. Saxena COMPLICATIONS/CHIEF COMPLAINT: Right hip pain HISTORY OF PRESENT ILLNESS/HOSPITAL COURSE: . Subjective 60-year-old male past medical history of hypothyroidism, hypertension , alcohol abuse who presents complaining of right hip pain. Patient's had initially had a mechanical fall mid August, transferred to [facility] with repair of his acetabulum fracture. Patient states since then he's had drainage at his right hip surgical site. He presented to the ED at [facility] 10/03/16 found to have cellulitic region of the area with the drainage. Patient was sent home and returned back to [facility] complaining of increased hip pain. Patient was found to be septic with blood pressure 90s over 60s, heart rate in the 120s, febrile 102. Patient was started on broad-spectrum antibiotics with imipenem and vancomycin. Imipenem was changed to meropenem. Patient is hemodynamically stable at this time. No additional draining from that site since admission. MRI right hip with diffuse soft tissue swelling. Ortho has been consulted and Dr. Bal recommended transferred to [facility] for further management the patient's right hip infection. Patient denies any cough/diarrhea/abdominal pain. No other source of infection. Chest x-ray with no consolidation. Urinalysis negative. Of note patient was noted to have anemia with hemoglobin dropping 13.6 down to 8.7 over the past 6 weeks. He will be transfused 2 units PRBC. Denies any melanotic stools/hematochezia or hematuria. Patient denies chest pain/possible/palpitations. No nausea/vomiting/abdominal pain. Patient's pain has been adequately controlled with Percocet. Appreciate Dr. Mendoza and Dr. Snow in assisting with further management of this patient in [facility]. DISCHARGE MEDICATIONS: Please see below. ALLERGIES: Please see below. PHYSICAL EXAMINATION ON DISCHARGE: VITAL SIGNS: Please see below. General: No acute distress, laying comfortably in bed. HEENT: Moist mucous membranes. Neck: No JVD or lymphadenopathy Cardiac: RRR, No murmurs Pulm: Clear to auscultation b/l. No wheezing, rhonchi Abd: NT/ND + BS Ext: Right hip edema and warmth. No drainage. Tender to palpation. Distal pulses intact. No erythema. LABORATORY DATA: Please see below. IMAGING: MRI Right Hip 10/07/16 IMPRESSION: Diffuse edema in the soft tissues surrounding the right hip. Extensive metallic artifact in the right hip joint obscures underlying structures. I cannot exclude underlying osteomyelitis or abscess in the region of the right hip. BLE U/s 10/07/16 Impression: No evidence for deep venous thrombosis. CXR 10/05/16 Impression: Stable hiatal hernia. Left rib fractures are relatively new compared to prior examination. No focal consolidation. PROGNOSIS: Fair ACTIVITY: As tolerated. DIET: As tolerated DISCHARGE PLAN/DISPOSITION: Transfer to [facility] under care of Dr. Mendoza. DISCHARGE INSTRUCTIONS: 1. F/u with ortho and PCP as instructed by [facility] upon d/c. DISCHARGE CONDITION: Stable. TIME SPENT ON DISCHARGE: Greater than 30 minutes. Vital Signs/I&Os Vital Signs Date Time Temp Pulse Resp B/P (MAP) Pulse Ox O2 Delivery O2 Flow Rate FiO2 10/07/16 12:00 98.7 88 18 122/76 (91) 98 Room Air I&O- Last 24 Hours up to 6 AM 10/07/16 06:00 Intake Total 6045 ml Output Total 5100 ml Balance 945 ml Laboratory Data Labs 24H Laboratory Tests 2 10/06/16 20:49: Vancomycin Level Trough 11.1 10/07/16 05:16: Erythrocyte Sedimentation Rate 109H, Anion Gap 8, Glomerular Filtration Rate > 60.0, Blood Urea Nitrogen 7, Creatinine 0.68L, Sodium Level 138, Potassium Level 3.5, Chloride Level 107, Carbon Dioxide Level 23, Calcium Level 8.4L, Aspartate Amino Transf (AST/SGOT) 38H, Alanine Aminotransferase (ALT/SGPT) 34, Alkaline Phosphatase 462H, Total Bilirubin 0.7, Total Protein 6.8, Albumin 2.4L , Magnesium Level 1.7L, C-Reactive Protein, Quantitative 21.00H, Albumin/ Globulin Ratio 0.55L CBC/BMP Laboratory Tests 10/07/16 05:16 Red Blood Count 3.02 L, Mean Corpuscular Volume 84.0, Mean Corpuscular Hemoglobin 26.2 L, Mean Corpuscular Hemoglobin Concent 31.2 L, Red Cell Distribution Width 14.7 H, Calcium Level 8.4 L, Aspartate Amino Transf (AST/SGOT ) 38 H, Alanine Aminotransferase (ALT/SGPT) 34, Alkaline Phosphatase 462 H, Total Bilirubin 0.7, Total Protein 6.8, Albumin 2.4 L Microbiology Microbiology 10/06/16 Blood Culture - Preliminary, Resulted No growth after 24 hours . All specim... 10/05/16 Blood Culture - Preliminary, Resulted No growth after 24 hours . All specim... 10/06/16 Urine Culture, Received Pending Discharge Medications Scheduled (Nicotrol Inhaler) 10 Mg Inh, 1 PUFF INH DAILY, (Reported) Ascorbic Acid (Vitamin C) 500 Mg Cap, 500 MG PO DAILY, (Reported) Aspirin (Aspirin) 325 Mg Tab, 325 MG PO DAILY, (Reported) Atenolol (Atenolol) 25 Mg Tab, 25 MG PO DAILY, (Reported) Esomeprazole Magnesium Trihydr (Nexium) 40 Mg Cap, 40 MG PO DAILY, (Reported) Folic Acid (Folic Acid) 1 Mg Tab, 1 MG PO DAILY, (Reported) Gabapentin (Gabapentin) 300 Mg Cap, 300 MG PO TID, (Reported) Lamotrigine (Lamictal) 100 Mg Tab, 50 MG PO BID, (Reported) Levothyroxine Sodium (Synthroid) 25 Mcg Tab, 25 MCG PO DAILY, (Reported) Meropenem (Meropenem) 1 Gm Inj, 1 GM IV Q8H Mirtazapine (Mirtazapine) 30 Mg Tab, 30 MG PO QHS, (Reported) Pentoxifylline (Pentoxifylline Cr) 400 Mg Tab, 400 MG PO TID, (Reported) Thiamine Hcl (Thiamine Hcl) 100 Mg Tab, 100 MG PO DAILY, (Reported) Trazodone HCl (Trazodone HCl) 100 Mg Tab, 100 MG PO QHS, (Reported) Vancomycin/Dextrose (Vancomycin HCl) 1,000 Mg Soln, 1,000 MG INJ Q8H Vitamin D (Vitamin D3) 1,000 Units Tab, 2 TABS PO DAILY, (Reported) Scheduled PRN Acetaminophen (Mapap) 325 Mg Tab, 2 TABS PO Q6HP PRN for PAIN, (Reported) Calcium Carbonate (Calcium Carbonate) 500 Mg Chw, 500 MG PO TIDP PRN for INDIGESTION, (Reported) Cyclobenzaprine HCl (Cyclobenzaprine HCl) 10 Mg Tab, 1 TAB PO TIDP PRN for PAIN, (Reported) Oxycodone HCl (Oxycodone HCl) 5 Mg Tab, 1 TAB PO Q4HP PRN for PAIN, (Reported) Allergies Coded Allergies: Penicillins (Verified Allergy, Unknown, FATHER IS ALLERGIC, PATIENT HAS NEVER TAKEN, 10/03/16) DIEGO PARRISH MD October 07, 2016 14:50
[2016-10-07] MEDS: METOPROLOL TART 12.5 MG PER 1/2 TAB PO SCH ×2 (15:08→20:11)
[2016-10-07] MEDS ORDERED: METO12TA PO (17:37)
[2016-10-07] MEDS ORDERED: VANCOMYCIN HCL 1,000 MG, VIAL MATE ADAPTER 1 EACH in D5W 250 ML IV SCH (19:00)
[2016-10-07] MEDS ORDERED: VANCOMYCIN HCL 1,000 MG, VIAL MATE ADAPTER 1 EACH in D5W 250 ML IV ONE (20:00)
[2016-10-07] MEDS: traZODone 100 MG TAB PO SCH (20:10)
[2016-10-07] MEDS: MIRTAZAPINE 15 MG TAB PO SCH (20:12)
--- NOTE | 2016-10-07 20:47 | PHACANCOPD ---
PHARMACY VANCOMYCIN DOSING Pt Demographics Demographics Patient Age:60 , Weight:84.300 , Gender: male Adjusted Body Weight Date: 10/06/16, Adjusted Body Weight: [80] Kg Events Past 24 Hours Events Past 24 Hours: NO: Dialysis, Diuretic Therapy, Change in CrCl, Fever, Elevation in WBC, Pending Diagnostics, Pending Procedures, Other Vancomycin Vancomycin indication: SEPSIS SECONDARY TO RIGHT HIP INFECTION Vancomycin Target Ranges: 15-20 mcg/ml Vancomycin Load Y/N: Yes Load Dose Date Time Vancomycin Load Dose: 1750MG Date: 10-06 Time: 0600 Vancomycin Dose Date: 10/07/16. Current Vancomycin Dose: [1gm IV q8h@19, extra 1gm @20] Date: 10/06/16. Current Vancomycin Dose: [1000MG Q8H] Intermittent Dosing?: No Labs Labs Item Value Date Time White Blood Count 12.6 K/mm3 H 10/05/16 2354 White Blood Count 11.7 K/mm3 H 10/06/16 0402 White Blood Count 9.2 K/mm3 10/07/16 0516 Creatinine 1.03 MG/DL 10/06/16 0402 Creatinine 0.68 MG/DL L 10/07/16 0516 Vancomycin Level Trough 11.1 UG/ML 10/06/16 2049 Vital Signs Label Value Date Time Patient Temperature 98.4 degrees F 10/07/16 2000 Temperature Source Temporal 10/07/16 2000 Patient Temperature 98.6 degrees F 10/07/16 1600 Temperature Source Temporal 10/07/16 1600 Micro Microbiology 10/06/16 Blood Culture - Preliminary, Resulted No growth after 24 hours . All specim... 10/05/16 Blood Culture - Preliminary, Resulted No growth after 24 hours . All specim... 10/06/16 Urine Culture, Received Pending Creatinine Clearance Date:10/06/16. Creatinine Clearance: [84]. Pending Labs Trough 10-06 @2100 Assessment and Plan Maintaining Current Dose?: Yes Reason for dose change: Other Pharmacist Note Pharmacist Note 10/07: Patient was admitted for sepsis possibly secondary to infection of right hip. He has undergone a drainage of the wound, but still presented to [facility] septic. He has no history of MRSA or Vancomycin use at our facility. His WBC is within normal limits, and he is currently afebrile. He was loaded with 2 grams of Vancomycin upon admission and continued on Vancomycin 1gm IV q8h. Due to him being off the floor for a procedure and a trough of 11.1 yesterday he was reloaded with 2 grams of Vancomycin and continue on Vancomycin 1gm IV q8h. He is due to be transferred to [facility] as soon as a bed is available to finish out his treatment. His blood cultures are negative to date. We will continue to monitor him and make adjustments as necessary. Date: 10/06/16. Pharmacist note:Dosed at 1000mg q8h with a trough ordered for @2100. Will continue to monitor and make adjustments as needed. [facility] October 07, 2016 20:47
[2016-10-07] MEDS ORDERED: METOPROLOL TART 12.5 MG PER 1/2 TAB PO ONE (22:15)
--- NOTE | 2016-10-07 22:35 | ECGEPIP ---
Stationary ECG Study [facility] Test Date: 2016-10-07 Pat Name: JOSHUA HASTINGS Department: Room: [place] [address] Gender: M [employer]: : [id number] Requested By: DIEGO PARRISH Order Number: [id number] Reading MD: Dejan Padgett Measurements Intervals [place] Rate: 124 P: [place]: 0 QRS: 42 QRSD: 89 T: 34 QT: 307 QTc: 442 Interpretive Statements ATRIAL FIBRILLATION WITH RAPID VENTRICULAR RESPONSE LOW QRS VOLTAGE IN EXTREMITY LEADS POSSIBLE RIGHT VENTRICULAR CONDUCTION DELAY Nonspecific ST-T abnormalities. Electronically Signed On 10-07-2016 22:35:09 EDT by Dejan Padgett
== END 2016-10-07 22:29 | disposition short-term general hospital (02) | DRG 349 ==
LOC: EDBD 23:11 → M ED 10-06 04:00 → M ED INP 10-06 04:01 → M PCU 10-06 04:39
PROVIDERS: ADMIT Internal Medicine; ATTEND Internal Medicine
DX: T84.620A Infection and inflammatory reaction due to internal fixation device of right femur, initial encounter (principal); A41.9 Sepsis, unspecified organism; I48.91 Unspecified atrial fibrillation; K70.10 Alcoholic hepatitis without ascites; I10 Essential (primary) hypertension; S22.32XA Fracture of one rib, left side, initial encounter for closed fracture; F17.210 Nicotine dependence, cigarettes, uncomplicated; E03.9 Hypothyroidism, unspecified; F10.21 Alcohol dependence, in remission; Z79.899 Other long term (current) drug therapy; Z88.0 Allergy status to penicillin; W06.XXXA Fall from bed, initial encounter; Y92.013 Bedroom of single-family (private) house as the place of occurrence of the external cause; Y93.01 Activity, walking, marching and hiking; Y99.9 Unspecified external cause status; Z79.891 Long term (current) use of opiate analgesic; B95.7 Other staphylococcus as the cause of diseases classified elsewhere

== ENCOUNTER → 2016-10-21 | Outpatient (REF) | payer MEDICAID ==
[~2016-10-21] MED LIST changes: +ASPI325T28 PO; +CALC500C16 PO; +CYCL10TA PO; +FOLI1TAB2 PO; +GABA-282 PO; +MAPA325T2 PO; +MERO1INJ IV; +METO12TA PO; +MIRT30TA3 PO; +NEXI40CA PO; +NICOINH INH; +OXYC-517 PO; +PENT400T19 PO; +THIA100TA PO; +VANC10005 INJ; +VITA500C24 PO; +VITAD1000T PO
[2016-10-21 10:10] LABS: BASO % 0.3 % (0.0-1.0); EOS # 0.1 K/mm3 (0.0-0.50); EOS % 1.1 % (0.0-3.0); LARGE UNSTAINED CELL # 0.1 K/mm3 (0.0-0.4); LARGE UNSTAINED CELL % 1.8 % (0.0-4.0); LYMPH # 1.1 K/mm3 (1.5-4.5); MEAN CORPUSCULAR HEMOGLOBIN 26.7 pg (27.0-33.0); MEAN CORPUSCULAR HGB CONC 31.4 g/dl (32.0-36.5); MEAN CORPUSCULAR VOLUME 85.1 fl (80.0-96.0); MONO # 0.7 K/mm3 (0.0-0.8); MONO % 9.2 % (0.0-5.0); NEUTROPHILS % 75.7 % (36.0-66.0); PLATELET COUNT, AUTOMATED 497 k/mm3 (150-450); RED CELL DISTRIBUTION WIDTH 16.1 % (11.5-14.5); WHITE BLOOD COUNT 7.9 K/mm3 (4.0-10.0)
[2016-10-21 10:36] LABS: ERYTHROCYTE SEDIMENTATION RATE 70 mm/hr (0-20)
[2016-10-21 11:10] LABS: ANION GAP 11 MEQ/L (8-16); BLOOD UREA NITROGEN 7 MG/DL (7-18); CALCIUM LEVEL 9.7 MG/DL (8.5-10.1); CARBON DIOXIDE LEVEL 22 MEQ/L (21-32); CHLORIDE LEVEL 102 MEQ/L (98-107); CREATININE FOR GFR 0.83 MG/DL (0.70-1.30); GLOMERULAR FILTRATION RATE > 60.0 (>56); GLUCOSE, FASTING 94 MG/DL (70-105); POTASSIUM SERUM 3.8 MEQ/L (3.5-5.1); SODIUM LEVEL 135 MEQ/L (136-145)
[2016-10-21 11:11] LABS: ALBUMIN 3.2 GM/DL (3.2-5.2); ALKALINE PHOSPHATASE 208 U/L (45-117); ALT/SGPT 15 U/L (12-78); AST/SGOT 8 U/L (15-37); BILIRUBIN,TOTAL 0.3 MG/DL (0.2-1.0); TOTAL PROTEIN 7.2 GM/DL (6.4-8.2)
== END ==
LOC: M SHH 09:39
PROVIDERS: ATTEND Internal Medicine Infectious Disease
DX: T84.7XXD Infection and inflammatory reaction due to other internal orthopedic prosthetic devices, implants and grafts, subsequent encounter (principal); A49.01 Methicillin susceptible Staphylococcus aureus infection, unspecified site; M86.9 Osteomyelitis, unspecified; Z79.2 Long term (current) use of antibiotics

== ENCOUNTER → 2016-10-24 | Outpatient (REF) | payer MEDICAID ==
[2016-10-24 10:27] LABS: BASO % 0.2 % (0.0-1.0); EOS # 0.1 K/mm3 (0.0-0.50); EOS % 0.9 % (0.0-3.0); LARGE UNSTAINED CELL # 0.1 K/mm3 (0.0-0.4); LARGE UNSTAINED CELL % 1.8 % (0.0-4.0); LYMPH # 0.9 K/mm3 (1.5-4.5); LYMPH % 12.2 % (24.0-44.0); MEAN CORPUSCULAR HEMOGLOBIN 26.3 pg (27.0-33.0); MEAN CORPUSCULAR HGB CONC 30.9 g/dl (32.0-36.5); MEAN CORPUSCULAR VOLUME 85.4 fl (80.0-96.0); MONO # 0.7 K/mm3 (0.0-0.8); MONO % 9.8 % (0.0-5.0); NEUTROPHILS # 5.7 K/mm3 (1.8-7.7); NEUTROPHILS % 75.1 % (36.0-66.0); PLATELET COUNT, AUTOMATED 433 k/mm3 (150-450); RED CELL DISTRIBUTION WIDTH 15.8 % (11.5-14.5); WHITE BLOOD COUNT 7.6 K/mm3 (4.0-10.0)
[2016-10-24 10:33] LABS: ALBUMIN 3.3 GM/DL (3.2-5.2); ALBUMIN/GLOBULIN RATIO 0.75 (1.00-1.93); ALKALINE PHOSPHATASE 209 U/L (45-117); ALT/SGPT 12 U/L (12-78); ANION GAP 6 MEQ/L (8-16); AST/SGOT 13 U/L (15-37); BILIRUBIN,TOTAL 0.3 MG/DL (0.2-1.0); BLOOD UREA NITROGEN 7 MG/DL (7-18); CALCIUM LEVEL 9.8 MG/DL (8.5-10.1); CARBON DIOXIDE LEVEL 26 MEQ/L (21-32); CHLORIDE LEVEL 100 MEQ/L (98-107); CREATININE FOR GFR 0.83 MG/DL (0.70-1.30); GLOMERULAR FILTRATION RATE > 60.0 (>56); GLUCOSE, FASTING 95 MG/DL (70-105); POTASSIUM SERUM 3.8 MEQ/L (3.5-5.1); SODIUM LEVEL 132 MEQ/L (136-145); TOTAL PROTEIN 7.7 GM/DL (6.4-8.2)
[2016-10-24 11:05] LABS: ERYTHROCYTE SEDIMENTATION RATE 70 mm/hr (0-20)
== END ==
LOC: M SHH 09:55
PROVIDERS: ATTEND Internal Medicine Infectious Disease
DX: Z79.2 Long term (current) use of antibiotics (principal); A49.02 Methicillin resistant Staphylococcus aureus infection, unspecified site; T84.7XXD Infection and inflammatory reaction due to other internal orthopedic prosthetic devices, implants and grafts, subsequent encounter

== ENCOUNTER → 2016-10-27 | Outpatient (REF) | payer MEDICAID ==
[2016-10-27 10:45] LABS: BASO % 0.1 % (0.0-1.0); EOS % 0.8 % (0.0-3.0); LARGE UNSTAINED CELL # 0.1 K/mm3 (0.0-0.4); LARGE UNSTAINED CELL % 1.8 % (0.0-4.0); LYMPH # 0.9 K/mm3 (1.5-4.5); MEAN CORPUSCULAR HEMOGLOBIN 27.2 pg (27.0-33.0); MEAN CORPUSCULAR HGB CONC 32.2 g/dl (32.0-36.5); MEAN CORPUSCULAR VOLUME 84.5 fl (80.0-96.0); MONO # 0.6 K/mm3 (0.0-0.8); MONO % 9.4 % (0.0-5.0); NEUTROPHILS % 75.8 % (36.0-66.0); PLATELET COUNT, AUTOMATED 317 k/mm3 (150-450); RED CELL DISTRIBUTION WIDTH 16.1 % (11.5-14.5); WHITE BLOOD COUNT 6.6 K/mm3 (4.0-10.0)
[2016-10-27 11:28] LABS: ERYTHROCYTE SEDIMENTATION RATE 79 mm/hr (0-20)
[2016-10-27 12:32] LABS: ALBUMIN 3.5 GM/DL (3.2-5.2); ALBUMIN/GLOBULIN RATIO 0.83 (1.00-1.93); ALKALINE PHOSPHATASE 174 U/L (45-117); ALT/SGPT 12 U/L (12-78); ANION GAP 10 MEQ/L (8-16); AST/SGOT 8 U/L (15-37); BILIRUBIN,TOTAL 0.5 MG/DL (0.2-1.0); BLOOD UREA NITROGEN 6 MG/DL (7-18); CALCIUM LEVEL 10.2 MG/DL (8.5-10.1); CARBON DIOXIDE LEVEL 23 MEQ/L (21-32); CHLORIDE LEVEL 102 MEQ/L (98-107); CREATININE FOR GFR 0.79 MG/DL (0.70-1.30); GLOMERULAR FILTRATION RATE > 60.0 (>56); GLUCOSE, FASTING 110 MG/DL (70-105); POTASSIUM SERUM 3.7 MEQ/L (3.5-5.1); SODIUM LEVEL 135 MEQ/L (136-145); TOTAL PROTEIN 7.7 GM/DL (6.4-8.2)
== END ==
LOC: M SHH 10:02
PROVIDERS: ATTEND Internal Medicine Infectious Disease
DX: Z79.2 Long term (current) use of antibiotics (principal); T84.7XXD Infection and inflammatory reaction due to other internal orthopedic prosthetic devices, implants and grafts, subsequent encounter; A49.02 Methicillin resistant Staphylococcus aureus infection, unspecified site

== ENCOUNTER → 2016-11-03 | Outpatient (REF) | payer MEDICAID ==
[2016-11-03 10:49] LABS: BASO % 0.3 % (0.0-1.0); EOS # 0.1 K/mm3 (0.0-0.50); EOS % 2.8 % (0.0-3.0); LARGE UNSTAINED CELL # 0.2 K/mm3 (0.0-0.4); LARGE UNSTAINED CELL % 3.6 % (0.0-4.0); LYMPH # 0.8 K/mm3 (1.5-4.5); LYMPH % 15.4 % (24.0-44.0); MEAN CORPUSCULAR HEMOGLOBIN 26.2 pg (27.0-33.0); MEAN CORPUSCULAR HGB CONC 31.1 g/dl (32.0-36.5); MEAN CORPUSCULAR VOLUME 84.2 fl (80.0-96.0); MONO # 0.6 K/mm3 (0.0-0.8); MONO % 13.6 % (0.0-5.0); NEUTROPHILS # 2.7 K/mm3 (1.8-7.7); NEUTROPHILS % 64.5 % (36.0-66.0); PLATELET COUNT, AUTOMATED 276 k/mm3 (150-450); RED CELL DISTRIBUTION WIDTH 15.8 % (11.5-14.5); WHITE BLOOD COUNT 4.1 K/mm3 (4.0-10.0)
[2016-11-03 10:50] LABS: ALBUMIN 3.5 GM/DL (3.2-5.2); ALBUMIN/GLOBULIN RATIO 0.76 (1.00-1.93); ALKALINE PHOSPHATASE 149 U/L (45-117); ALT/SGPT 15 U/L (12-78); ANION GAP 8 MEQ/L (8-16); AST/SGOT 11 U/L (15-37); BILIRUBIN,TOTAL 0.4 MG/DL (0.2-1.0); BLOOD UREA NITROGEN 14 MG/DL (7-18); CALCIUM LEVEL 10.2 MG/DL (8.8-10.2); CARBON DIOXIDE LEVEL 26 MEQ/L (21-32); CHLORIDE LEVEL 103 MEQ/L (98-107); CREATININE FOR GFR 1.04 MG/DL (0.70-1.30); GLOMERULAR FILTRATION RATE > 60.0 (>49); GLUCOSE, FASTING 95 MG/DL (80-110); POTASSIUM SERUM 4.1 MEQ/L (3.5-5.1); SODIUM LEVEL 137 MEQ/L (136-145); TOTAL PROTEIN 8.1 GM/DL (6.4-8.2)
[2016-11-03 11:31] LABS: ERYTHROCYTE SEDIMENTATION RATE 75 mm/hr (0-20)
== END ==
LOC: M SHH 10:00
PROVIDERS: ATTEND Internal Medicine Infectious Disease
DX: Z79.2 Long term (current) use of antibiotics (principal); T84.7XXD Infection and inflammatory reaction due to other internal orthopedic prosthetic devices, implants and grafts, subsequent encounter

== ENCOUNTER → 2016-11-10 | Outpatient (REF) | payer OTHER, MEDICAID ==
[~2016-11-10] MED LIST changes: -FOLI1TAB2 PO; +FOLI1TAB4 PO; +KEFL500C17 PO; -KEFL500C7 PO; -METO12TA PO; +METO1TAB87 PO; +TRAZ-136 PO; -TRAZ100T4 PO
[2016-11-10 10:43] LABS: BASO % 0.3 % (0.0-1.0); EOS # 0.1 K/mm3 (0.0-0.50); EOS % 2.8 % (0.0-3.0); LARGE UNSTAINED CELL # 0.1 K/mm3 (0.0-0.4); LARGE UNSTAINED CELL % 2.4 % (0.0-4.0); LYMPH # 0.9 K/mm3 (1.5-4.5); LYMPH % 15.9 % (24.0-44.0); MEAN CORPUSCULAR HEMOGLOBIN 25.8 pg (27.0-33.0); MEAN CORPUSCULAR HGB CONC 31.2 g/dl (32.0-36.5); MEAN CORPUSCULAR VOLUME 82.6 fl (80.0-96.0); MONO # 0.6 K/mm3 (0.0-0.8); MONO % 12.3 % (0.0-5.0); NEUTROPHILS # 3.2 K/mm3 (1.8-7.7); NEUTROPHILS % 66.3 % (36.0-66.0); PLATELET COUNT, AUTOMATED 305 k/mm3 (150-450); RED CELL DISTRIBUTION WIDTH 15.8 % (11.5-14.5); WHITE BLOOD COUNT 4.8 K/mm3 (4.0-10.0)
[2016-11-10 10:57] LABS: ALBUMIN 3.8 GM/DL (3.2-5.2); ALBUMIN/GLOBULIN RATIO 0.84 (1.00-1.93); ALKALINE PHOSPHATASE 145 U/L (45-117); ALT/SGPT 17 U/L (12-78); ANION GAP 10 MEQ/L (8-16); AST/SGOT 12 U/L (15-37); BILIRUBIN,TOTAL 0.4 MG/DL (0.2-1.0); BLOOD UREA NITROGEN 11 MG/DL (7-18); CALCIUM LEVEL 9.5 MG/DL (8.8-10.2); CARBON DIOXIDE LEVEL 23 MEQ/L (21-32); CHLORIDE LEVEL 104 MEQ/L (98-107); CREATININE FOR GFR 0.98 MG/DL (0.70-1.30); GLOMERULAR FILTRATION RATE > 60.0 (>49); GLUCOSE, FASTING 91 MG/DL (80-110); POTASSIUM SERUM 4.2 MEQ/L (3.5-5.1); SODIUM LEVEL 137 MEQ/L (136-145); TOTAL PROTEIN 8.3 GM/DL (6.4-8.2)
[2016-11-10 11:32] LABS: ERYTHROCYTE SEDIMENTATION RATE 69 mm/hr (0-20)
== END ==
LOC: M SHH 10:11
PROVIDERS: ATTEND Internal Medicine Infectious Disease
DX: Z79.2 Long term (current) use of antibiotics (principal); T84.7XXD Infection and inflammatory reaction due to other internal orthopedic prosthetic devices, implants and grafts, subsequent encounter

== ENCOUNTER → 2016-11-17 | Outpatient (REF) | payer OTHER ==
[2016-11-17 12:18] LABS: BASO % 0.1 % (0.0-1.0); EOS # 0.1 K/mm3 (0.0-0.50); EOS % 1.4 % (0.0-3.0); LARGE UNSTAINED CELL # 0.1 K/mm3 (0.0-0.4); LARGE UNSTAINED CELL % 1.7 % (0.0-4.0); LYMPH # 0.9 K/mm3 (1.5-4.5); LYMPH % 12.8 % (24.0-44.0); MEAN CORPUSCULAR HEMOGLOBIN 26.7 pg (27.0-33.0); MEAN CORPUSCULAR HGB CONC 32.5 g/dl (32.0-36.5); MONO # 0.4 K/mm3 (0.0-0.8); MONO % 7.5 % (0.0-5.0); NEUTROPHILS # 4.5 K/mm3 (1.8-7.7); NEUTROPHILS % 76.5 % (36.0-66.0); PLATELET COUNT, AUTOMATED 242 k/mm3 (150-450); RED CELL DISTRIBUTION WIDTH 16.5 % (11.5-14.5); WHITE BLOOD COUNT 5.9 K/mm3 (4.0-10.0)
[2016-11-17 12:39] LABS: ALBUMIN 3.8 GM/DL (3.2-5.2); ALBUMIN/GLOBULIN RATIO 0.84 (1.00-1.93); ALKALINE PHOSPHATASE 151 U/L (45-117); ALT/SGPT 22 U/L (12-78); ANION GAP 9 MEQ/L (8-16); AST/SGOT 15 U/L (15-37); BILIRUBIN,TOTAL 0.3 MG/DL (0.2-1.0); BLOOD UREA NITROGEN 14 MG/DL (7-18); CALCIUM LEVEL 9.5 MG/DL (8.8-10.2); CARBON DIOXIDE LEVEL 22 MEQ/L (21-32); CHLORIDE LEVEL 105 MEQ/L (98-107); CREATININE FOR GFR 0.97 MG/DL (0.70-1.30); GLOMERULAR FILTRATION RATE > 60.0 (>49); GLUCOSE, FASTING 97 MG/DL (80-110); POTASSIUM SERUM 4.1 MEQ/L (3.5-5.1); SODIUM LEVEL 136 MEQ/L (136-145); TOTAL PROTEIN 8.3 GM/DL (6.4-8.2)
[2016-11-17 12:53] LABS: ERYTHROCYTE SEDIMENTATION RATE 64 mm/hr (0-20)
== END ==
LOC: M SHH 11:56
PROVIDERS: ATTEND Internal Medicine Infectious Disease
DX: A49.02 Methicillin resistant Staphylococcus aureus infection, unspecified site (principal); T84.7XXD Infection and inflammatory reaction due to other internal orthopedic prosthetic devices, implants and grafts, subsequent encounter; Z79.02 Long term (current) use of antithrombotics/antiplatelets; M86.20 Subacute osteomyelitis, unspecified site

== ENCOUNTER → 2017-02-05 | Outpatient (CLI) | payer OTHER, MEDICAID ==
--- NOTE | 2017-02-25 00:47 | ECWPNPC ---
PATIENT NAME: JOSHUA HASTINGS : 1955 GENDER: MALE VISIT DATE: 02/05/2017 DISCHARGE DATE: 02/05/17 1239 VISIT LOCKED DATE TIME: PHYSICIAN: JORDAN CALVERT RESOURCE: JORDAN CALVERT REASON FOR APPOINTMENT 1. ACTABULAR FRACTURE, CHRONIC PAIN HISTORY OF PRESENT ILLNESS NEW PATIENT CONSULT: 61 Y/O MALE REFERRED BY SURGEON FOR RIGHT HIP AND LEG PAIN POST PELVIC AND HIP SURGERY WITH HARDWARE AND COMPLICATIONS.HIP SURGERY WAS AT [facility] IN [place] 08/2016.HE WAS ADMITTED TO [facility] ON September AFTER A GROUND LEVEL FALL AND SEPSIS.HE HAD I/D AND TREATED FOR MRSA.CURRENTLY ON ANTIBIOTICS.RATING PAIN VAS 8/10.PAIN IS AGGREVATED BY ADL'S.PAIN IS RELIEVED SOMEWHAT WITH REST.USING CYCLOBENZAPRINE 10MG TID AND GABAPENTIN 300MG TID.RATING PAIN VAS 8/10.DESCRIBES PAIN THROBBING AND SORE.DENIES RECENT FEVER OR ILLNESS.HISTORY OF ALCOHOL ABUSE DISORDER BUT STATES HE HASNT DRANK IN A YEAR.CONTINUES TO SMOKE GREATER THAN ONE PACK PER DAY.REPORTING NORMAL BLADDER AND BOWEL FUNCTION. WHEN DID YOUR PAIN FIRST START? . BRIEFLY DESCRIBE HOW YOUR PAIN STARTED? . HOW DOES YOUR PAIN CHANGE WITH TIME? . DOES YOUR PAIN AWAKEN YOU FROM SLEEP? . HOW MANY HOURS OF SLEEP DO YOU NORMALLY GET? . ANY DIAGNOSTIC TESTING? . FACILITY WHERE TESTS WERE DONE? ____. PAIN TREATMENT TREATMENT YES CANCER HAVE YOU EVER HAD ANY TYPE OF CANCER?NO NO. PAIN SCREENING: PATIENT HAS A COMPLAINT OF ACUTE OR CHRONIC PAIN :YES FALL RISK SCREENING: SCREENING :ONE FALL WITHOUT INJURY IN THE PAST YEAR LARKIN INVENTORY: QUESTIONNAIRE ASSESSEDYES SCORE VALUE CALCULATED YES SCORE:23 CURRENTLY BEING TREATED FOR DEPRESSION VIA COUNSELING PER PATIENT AND DENIES ACTIVE SUICIDAL THOUGHTS OR ACTIONS. CURRENT MEDICATIONS TAKING VITAMIN C 500 MG CAPSULE ORALLY ONCE DAILY TAKING ASPIRIN 325 MG TABLET 1 TABLET ORALLY ONCE DAILY NEEDED TAKING ATENOLOL 50 MG TABLET 1 TABLET ORALLY ONCE A DAY TAKING CYCLOBENZAPRINE HCL 10 MG TABLET 1 TABLET NEEDED ORALLY THREE TIMES A DAY TAKING FOLIC ACID 1 MG TABLET 1 TABLET ORALLY ONCE A DAY TAKING GABAPENTIN 300 MG CAPSULE 1 CAPSULE ORALLY THREE TIMES A DAY TAKING PANTOPRAZOLE SODIUM 40 MG TABLET DELAYED RELEASE 1 TABLET ORALLY ONCE A DAY TAKING LAMICTAL 100 MG TABLET HALF TABLET ORALLY TWICE A DAY TAKING SYNTHROID 25 MCG TABLET 1 TABLET ON AN EMPTY STOMACH IN THE MORNING ORALLY ONCE A DAY TAKING THIAMINE HCL 100 MG TABLET 1 TABLET ORALLY ONCE A DAY TAKING TRAZODONE HCL 100 MG TABLET 1 TABLET AT BEDTIME ORALLY ONCE A DAY TAKING VITAMIN D-3 1000 UNIT CAPSULE 1 CAPSULE ORALLY BID MEDICATION LIST REVIEWED AND RECONCILED WITH THE PATIENT PAST MEDICAL HISTORY RIGHT ACETABULAR FX WITH INFECTION NEEDING I&D FOLLOWED BY INFECTIOUS DISEASE MD FOR MRSA HYPOTHYROIDISM HTN HIP INFECTION HX OF ALCOHOL DEPENDENCE HX OF ALCOHOL HEPITITIS HX SEIZURES HX OF DVT ALLERGIES PENICILLIN: UNKNOWN SURGICAL HISTORY RIGHT ACETABULAR FX WITH I&D POST OP 11/24 BREAST BIOPSY 2011 FAMILY HISTORY FATHER: 79 YRS, DIAGNOSED WITH OTHER MOTHER: 79 YRS, DIAGNOSED WITH CANCER SIBLINGS: ALIVE 2 BROTHER(S) , 1 SISTER(S) - HEALTHY. BROTHER FROM RENAL FAILURE AGE 32, SISITER ANKUR MVA 12 YEARS. SOCIAL HISTORY GENERAL: TOBACCO USE ARE YOU A:CURRENT SMOKER ARE YOU INTERESTED IN QUITTING?READY TO QUIT COUNSELED THE PATIENT ON TOBACCO USE, CESSATION [id number] PATIENT COUNSELED ON THE DANGERS OF TOBACCO USE AND URGED TO QUIT:02/05/2017 ALCOHOL SCREENING [id number] INTERPRETATIONPOSITIVE CAFFEINE CAFFEINE USE?YES HOW OFTEN AND HOW MUCH? 3 CUPS PER DAY OCCUPATION: UNEMPLOYED. DIET: REGULAR. EXERCISE: NO REGULAR EXERCISE. MARITAL STATUS: SINGLE. OTHERS AT HOME: NONE. 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 HOSPITALIZATION/MAJOR DIAGNOSTIC PROCEDURE SEE ABOVE REVIEW OF SYSTEMS REVIEWED BY: PROVIDER: JORDAN DOMINIQUE . CONSTITUTIONAL: ANY CHANGE IN YOUR MEDICAL CONDITION? NO . CHILLS NO . FEVER NO . INFECTION: DO YOU HAVE NEW INFECTIONS? NO . DO YOU HAVE HISTORY OF MRSA? YES . MUSCULOSKELETAL: ANY NEW PATTERNS OF PAIN OR NUMBNESS? YES . SYTEMIC LUPUS NO . GASTROENTEROLOGY: ANY NEW CHANGE IN BOWEL CONTROL? NO . BARRETTS ESOPHAGUS NO . CIRRHOSIS NO . HEPATITIS YES . LIVER FAILURE NO . ACID REFLUX NO . UNEXPLAINED WEIGHT LOSS NO . GENITOURINARY: ANY NEW CHANGE IN BLADDER CONTROL? NO . IS THERE A CHANCE YOU COULD BE ? NO . HEMATOLOGY/LYMPH: DO YOU TAKE ANY BLOOD THINNERS? (FOR EXAMPLE- COUMADIN, PLAVIX, AGGRENOX, PLATEL, PRADAXA, OR XARELTO) NO . WHEN WAS YOUR LAST DOSE? DATE: TIME: . LOW PLATELET COUNT NO . SICKLE CELL DISEASE NO . VON WILLIEBRANDS NO . FACTOR V LEIDEN NO . THALLASEMIA NO . ANEMIA , NEW ONSET . EASY BRUISING NO . NEUROLOGY: HAVE YOU FALLEN IN THE PAST 6 MONTHS? YES . ANY NEW EXTREMITY NUMBNESS OR WEAKNESS? YES . HEAD INJURY NO . DEMENTIA NO . CEREBRAL PALSY NO . MULTIPLE SCLEROSIS NO . DIZZINESS NO . HEADACHE NO . STROKES NO . VERTIGO NO . CARDIOLOGY: DO YOU HAVE A PACEMAKER OR DEFIBRILLATOR? NO . ANGINA NO . HEART ATTACK NO . HEART SURGERY NO . CONGESTIVE HEART FAILURE/FLUID OVERLOAD NO . CHEST PAIN NO . HIGH BLOOD PRESSURE ON MEDICATION(S) . IRREGULAR HEART BEAT SKIPPED HEART BEAT, A-FIB . RESPIRATORY: HAVE YOU BEEN SICK IN THE PAST WEEK? NO . FEVER NO . FLU LIKE SYMPTOMS? NO . CPAP NO . BYPAP NO . ASTHMA NO . EMPHYSEMA NO . CHRONIC LUNG DISEASES NO . SHORTNESS OF BREATH ON EXERTION YES . DO YOU USE ANY TYPE OF TOBACCO (SMOKE, SMOKELESS, CHEW)? YES . COUGH NO . SNORING YES . INTEGUMENTARY: DO YOU HAVE ANY RASHES OR OPEN SORES? NO . ALLERGIC/IMMUNO: ARE YOU ALLERGIC TO SHELLFISH OR IV DYE? NO . ANY NEW ALLERGIES? NO . PSYCHIATRIC: DO YOU HAVE THOUGHTS OF HURTING YOURSELF OR SOMEONE ELSE? NO . ARE YOU ABUSED, NEGLECTED, OR IN AN UNSAFE ENVIRONMENT? NO . ENDOCRINOLOGY: ARE YOU DIABETIC? NO . THYROID DISORDER HYPOTHYROID, . OTHER: DO YOU NEED ANY PRESCRIPTIONS? NO . IF YES, PLEASE LIST: ____ . ANY NEW PROBLEMS WITH YOUR MEDICATIONS? NO . WHEN DID YOU LAST EAT? ____ . WHEN DID YOU LAST DRINK? ____ . WHAT DID YOU LAST DRINK? ____ . NAME OF PERSON DRIVING YOU HOME? ____ . DO YOU HAVE ANY OTHER QUESTIONS OR CONCERNS NO . VITAL SIGNS WT 166.4 LBS, HT 72 IN, BMI 22.57 INDEX, BP 106/68 MM HG, HR 88 /MIN, TEMP 98.1 F, OXYGEN SAT % 100, SAFE IN ENV? (Y/N) YES, NA INITIALS MP 1018, REVIEWED BY: LI. EXAMINATION GENERAL EXAMINATION: GENERAL APPEARANCE:CACHECTIC,SAD,FLAT AFFECT. PSYCHDEPRESSED.. NECK:TRACHEA MIDLINE. NO CERVICAL OR SUPRACLAVICULAR LYMPHADENOPATHY NOTED. LUNGS:BILATERAL RHONCHI, CLEARED WITH COUGH. HEART:S1, S2 IN A REGULAR RATE AND RHYTHM. NO SIGNIFICANT MURMURS, RUBS OR GALLOPS NOTED. ABDOMEN:CACHECTIC,SOFT/NONTENDER. MUSCULOSKELETAL:MUSCLE STRENGTH TESTING 3/5 BILATERAL LOWER EXTREMITIES.. LUMBAR SACRAL SPINETENFERNESS WITH PALPATION OVER L/S SPINE AND LUMBAR PARASPINALS R>L. HIP / THIGH: INSPECTION:INCISIONAL AREA WITHOUT REDDNESS OR SWELLING/WELL HEALED.TENDER WITH PALPATION-RIGHT HIP. RANGE OF MOTION:LIMITED OVER RIGHT LEG AND HIP. ASSESSMENTS RIGHT HIP PAIN - M25.551 (PRIMARY) POST-OPERATIVE PAIN - G89.18 TREATMENT RIGHT HIP PAIN START CYMBALTA CAPSULE DELAYED RELEASE PARTICLES, 30 MG, 1 CAPSULE, ORALLY, DAILY, 30 DAY(S), 30 CAPSULE, REFILLS 2 PROCEDURE CODES FA211 ESTABILISHED PATIENT [facility] CHARGE DISPOSITION & COMMUNICATION FOLLOW UP 4 WEEKS ELECTRONICALLY SIGNED BY TRIP CHIRINOS ON 02/24/2017 AT 08:40 AM EDT DISCLAIMER : THIS IS A VISIT SUMMARY EXTRACTED FROM THE [employer] CHART. IT IS NOT A COPY OF THE [employer] PROGRESS NOTE. JONES
== END ==
LOC: M PAIN 10:15
PROVIDERS: ATTEND Nurse Practitioner Family
DX: M25.551 Pain in right hip (principal); G89.18 Other acute postprocedural pain; F32.9 Major depressive disorder, single episode, unspecified; Z79.82 Long term (current) use of aspirin; F17.210 Nicotine dependence, cigarettes, uncomplicated; Z88.0 Allergy status to penicillin; Z86.14 Personal history of Methicillin resistant Staphylococcus aureus infection

== ENCOUNTER 2018-04-02 17:31 | Emergency (ER) | payer OTHER, MEDICAID ==
[2018-04-02] MEDS: LIDOCAINE 2% W/EPIN INJ 20ML **PRES FREE INJ (18:00)
== END 2018-04-02 18:44 | disposition home or self-care (01) ==
LOC: M ED 17:31
DX: L72.3 Sebaceous cyst (principal); I10 Essential (primary) hypertension; K21.9 Gastro-esophageal reflux disease without esophagitis; F10.10 Alcohol abuse, uncomplicated; F17.210 Nicotine dependence, cigarettes, uncomplicated; Z79.899 Other long term (current) drug therapy
CPT/HCPCS: 10060

== ENCOUNTER 2023-03-25 11:23 | Observation (INO) | payer MEDICARE, MEDICAID ==
[~2023-03-25] VITALS: Ht 175.3 cm; Wt 70.5 kg
[~2023-03-25 11:23] MED LIST changes: +ASPI-527 PO; -ASPI325T28 PO; -CALC500T36 PO; +CALC500T61 PO; +CHOL100029 PO; +CYCL-707 PO; -CYCL10TA PO; +DULO1CAP4 PO; +FOLI1TAB11 PO; -FOLI1TAB4 PO; +GABA600T4 PO; +LAMO100T3 PO; -MAPA325T2 PO; +MAPA325T8 PO; -MERO1INJ IV; +MERO1VIA3 IV; +MIRT1TAB16 PO; -MIRT30TA2 PO; +PANT40TA29 PO; -PENT400T19 PO; +PENT400T22 PO; -TRAZ-136 PO; +TRAZ-257 PO; +TRAZ150T90 PO; -VITAD1000T PO
[2023-03-25] MEDS ORDERED: ISOVUE-370 76% 100ML VIAL As Ordered ONE (12:30)
[2023-03-25] MEDS ORDERED: BOOSTRIX VACCINE (TETANUS/DIPHTH/ACEL. PERTUSSIS) 0.5ML SYR IM.IMMUN ONE (12:30)
[2023-03-25 12:51] LABS: BASO % 0.1 % (0.0-1.0); EOS % 0.1 % (0.0-3.0); HEMATOCRIT 36.4 % (42.0-52.0); HEMOGLOBIN 11.3 g/dl (13.5-17.5); LYMPH # 0.8 10^3/uL (1.5-5.0); LYMPH % 7.5 % (24.0-44.0); MEAN CORPUSCULAR HEMOGLOBIN 27.2 pg (27.0-33.0); MEAN CORPUSCULAR VOLUME 87.7 fl (80.0-96.0); MONO % 9.3 % (2.0-8.0); NEUTROPHILS # 8.4 10^3/uL (1.5-8.5); NEUTROPHILS % 82.4 % (36.0-66.0); PLATELET COUNT, AUTOMATED 188 10^3/uL (150-450); RED BLOOD COUNT 4.15 10^6/uL (4.30-6.10); WHITE BLOOD COUNT 10.2 10^3/uL (4.0-10.0)
[2023-03-25 13:12] LABS: ERYTHROCYTE SEDIMENTATION RATE 74 mm/hr (0-20)
[2023-03-25 13:17] LABS: BLOOD UREA NITROGEN 11 MG/DL (9-23); CALCIUM LEVEL 8.7 MG/DL (8.3-10.6); CARBON DIOXIDE LEVEL 20 MMOL/L (20-31); CHLORIDE LEVEL 105 MMOL/L (98-107); CK-MB VALUE MASS 4.3 NG/ML (<3.6); CPK CREATINE PHOSPHOKINASE 172 U/L (46-171); CREATININE FOR GFR 0.74 MG/DL (0.70-1.30); GLOMERULAR FILTRATION RATE > 60.0 (>49); GLUCOSE, FASTING 76 MG/DL (74-106); SODIUM LEVEL 138 MMOL/L (136-145)
[2023-03-25] MEDS ORDERED: METOPROLOL 5 MG/5 ML VIAL IV STA (13:42)
[2023-03-25] MEDS ORDERED: MED REC IN PROGRESS XX SCH (15:20)
[2023-03-25] MEDS ORDERED: ACET325C5 PO (15:21)
[2023-03-25] MEDS ORDERED: VITAMIN D PO (15:23)
[2023-03-25] MEDS ORDERED: CEFEPIME HCL 2 GM in D5W MINI-BAG PLUS 50 ML IV ONE (16:00)
[2023-03-25] MEDS ORDERED: NORCO, ANEXSIA 5/325MG TABLET (HYDROcodone/ACETAMINOPHEN) PO PRN (16:20)
[2023-03-25] MEDS ORDERED: ACETAMINOPHEN TAB 650MG DOSE (2X325MG) PO PRN (16:20)
[2023-03-25 16:28] LABS: PROCALCITONIN <0.04 ng/ml
[2023-03-25] MEDS: THIAMINE 100 MG TAB PO SCH (17:09)
[2023-03-25] MEDS: LR 1,000 ML IV SCH ×2 (17:09→23:32)
[2023-03-25] MEDS ORDERED: PRIL20TA2 PO (17:12)
[2023-03-25] MEDS ORDERED: HOME MED LIST COMPLETE! XX SCH (17:30)
[2023-03-25 17:46] LABS: RSV AMPLIFICATION NEGATIVE (NEGATIVE)
[2023-03-25 20:30] VITALS: BP 146/96; TEMP 97.9; O2SAT 99
[2023-03-25] MEDS: METOPROLOL TART 25 MG TABLET PO SCH (21:00)
[2023-03-25] MEDS: LORazepam 2 MG TAB PO PRN (22:18)
[2023-03-25] MEDS: CEFEPIME HCL 2 GM in D5W MINI-BAG PLUS 50 ML IV SCH (23:32)
[2023-03-25 23:57] VITALS: BP 120/78; TEMP 98.3; O2SAT 97
[2023-03-26] MEDS: LORazepam 2 MG TAB PO PRN (03:54)
[2023-03-26 04:31] VITALS: BP 124/95; TEMP 98.3; O2SAT 99
[2023-03-26 05:30] LABS: HEMATOCRIT 34.7 % (42.0-52.0); HEMOGLOBIN 11.3 g/dl (13.5-17.5); MEAN CORPUSCULAR HEMOGLOBIN 27.8 pg (27.0-33.0); MEAN CORPUSCULAR HGB CONC 32.6 g/dl (32.0-36.5); MEAN CORPUSCULAR VOLUME 85.3 fl (80.0-96.0); PLATELET COUNT, AUTOMATED 165 10^3/uL (150-450); RED BLOOD COUNT 4.07 10^6/uL (4.30-6.10); WHITE BLOOD COUNT 7.6 10^3/uL (4.0-10.0)
[2023-03-26] MEDS: LR 1,000 ML IV SCH (05:43)
[2023-03-26 05:55] LABS: BLOOD UREA NITROGEN 11 MG/DL (9-23); CALCIUM LEVEL 8.8 MG/DL (8.3-10.6); CARBON DIOXIDE LEVEL 22 MMOL/L (20-31); CHLORIDE LEVEL 103 MMOL/L (98-107); CREATININE FOR GFR 0.69 MG/DL (0.70-1.30); GLOMERULAR FILTRATION RATE > 60.0 (>49); GLUCOSE, FASTING 79 MG/DL (74-106); POTASSIUM SERUM 3.8 MMOL/L (3.5-5.1); SODIUM LEVEL 137 MMOL/L (136-145)
[2023-03-26 06:07] LABS: PROCALCITONIN <0.04 ng/ml
[2023-03-26 07:50] VITALS: BP 108/64; TEMP 97.8; O2SAT 100
[2023-03-26] MEDS: METOPROLOL TART 25 MG TABLET PO SCH (08:17)
[2023-03-26] MEDS: ENOXAPARIN 40MG/0.4ML SYRINGE (J1650 PER 10MG) SC SCH (08:28)
[2023-03-26] MEDS: CEFEPIME HCL 2 GM in D5W MINI-BAG PLUS 50 ML IV SCH ×3 (08:29→23:35)
[2023-03-26] MEDS: THIAMINE 100 MG TAB PO SCH ×2 (08:29→20:48)
[2023-03-26] MEDS: FOLIC ACID 1MG TAB PO SCH (08:29)
[2023-03-26] MEDS: MULTIVITAMINS/MINERALS THERAP 1 TAB PO SCH (08:29)
[2023-03-26] MEDS: LEVOTHYROXINE 25MCG TABLET (0.025MG) PO SCH (10:10)
[2023-03-26] MEDS: lamoTRIgine 25MG TAB PO SCH (10:11)
[2023-03-26] MEDS: OMEPRAZOLE 20MG CAP PO SCH (10:11)
[2023-03-26] MEDS: metroNIDAZOLE 500 MG in IV 1 EA IV SCH ×2 (10:11→18:24)
[2023-03-26 11:53] VITALS: BP 133/90; TEMP 97.8; O2SAT 93
[2023-03-26 16:15] VITALS: BP 138/76; TEMP 98.9; O2SAT 100
[2023-03-26 20:00] VITALS: BP 132/92; TEMP 97.5; O2SAT 95
[2023-03-26 20:49] VITALS: BP 132/93
[2023-03-26] MEDS: METOPROLOL TART 50 MG TAB PO SCH (20:49)
[2023-03-26] MEDS ORDERED: traZODone 50 MG TAB PO SCH (21:00)
[2023-03-27] VITALS: BP 102/60; TEMP 97.5; O2SAT 95
[2023-03-27] MEDS: metroNIDAZOLE 500 MG in IV 1 EA IV SCH ×2 (02:23→09:59)
[2023-03-27 04:00] VITALS: BP 124/79; TEMP 97.4; O2SAT 93
[2023-03-27] MEDS: LEVOTHYROXINE 25MCG TABLET (0.025MG) PO SCH (05:55)
[2023-03-27 08:00] VITALS: BP 128/75; TEMP 98.4; O2SAT 96
[2023-03-27] MEDS: ENOXAPARIN 40MG/0.4ML SYRINGE (J1650 PER 10MG) SC SCH (08:38)
[2023-03-27] MEDS: lamoTRIgine 25MG TAB PO SCH (08:39)
[2023-03-27] MEDS: THIAMINE 100 MG TAB PO SCH (08:39)
[2023-03-27] MEDS: OMEPRAZOLE 20MG CAP PO SCH (08:39)
[2023-03-27] MEDS: METOPROLOL TART 50 MG TAB PO SCH (08:40)
[2023-03-27] MEDS: CEFEPIME HCL 2 GM in D5W MINI-BAG PLUS 50 ML IV SCH (08:40)
[2023-03-27] MEDS: FOLIC ACID 1MG TAB PO SCH (08:40)
[2023-03-27] MEDS: MULTIVITAMINS/MINERALS THERAP 1 TAB PO SCH (08:40)
[2023-03-27] MEDS ORDERED: METOPROLOL 5 MG/5 ML VIAL IV STA (09:37)
[2023-03-27] MEDS ORDERED: CEFD300C42 PO ×2 (09:40→10:20)
[2023-03-27] MEDS ORDERED: METR-265 PO (09:40)
[2023-03-27] MEDS ORDERED: LOPR1TAB6 PO (09:40)
[2023-03-27] MEDS ORDERED: CLIN150C17 PO (10:20)
[2023-03-27] MEDS ORDERED: PROBCAP2 PO (10:20)
[2023-03-27] MEDS ORDERED: ASPI81CH33 PO (10:23)
[2023-03-27 11:59] VITALS: BP 112/82; TEMP 97.8; O2SAT 99
== END 2023-03-27 13:46 | disposition home or self-care (01) ==
LOC: EDBD 11:23 → M ED 11:23 → M ED INP 15:16 → INTOOBSV 16:39 → OBSVTOIN 16:39 → M PCU 19:55
PROVIDERS: ADMIT Internal Medicine; ATTEND Internal Medicine
DX: M27.40 Unspecified cyst of jaw (principal); L08.9 Local infection of the skin and subcutaneous tissue, unspecified; B95.7 Other staphylococcus as the cause of diseases classified elsewhere; M54.2 Cervicalgia; I48.91 Unspecified atrial fibrillation; F10.20 Alcohol dependence, uncomplicated; S42.122A Displaced fracture of acromial process, left shoulder, initial encounter for closed fracture; W10.8XXA Fall (on) (from) other stairs and steps, initial encounter; Y92.89 Other specified places as the place of occurrence of the external cause; Y93.01 Activity, walking, marching and hiking; E87.20 Acidosis, unspecified; E03.9 Hypothyroidism, unspecified; K21.9 Gastro-esophageal reflux disease without esophagitis; F39 Unspecified mood [affective] disorder; M25.551 Pain in right hip; M25.552 Pain in left hip; F17.210 Nicotine dependence, cigarettes, uncomplicated; Z88.0 Allergy status to penicillin; Z79.899 Other long term (current) drug therapy; Z79.82 Long term (current) use of aspirin; Z79.890 Hormone replacement therapy; Z23 Encounter for immunization
CPT/HCPCS: 36415; 70450; 70486; 70491; 71045; 71250; 72125; 73030; 76536; 80048; 81001; 82077; 82550; 82553; 83605; 84145; 84484; 85025; 85027; 85652; 86140; 87040; 87070; 87077; 87186; 87205; 87631; 90471; 90715; 93005; 93041; 94760; 96361; 96365; 96366; 96367; 96372; 96375; 96376; 97116; 97161; 99285; G0378; J0692; J1650; J1836; Q9967

== ENCOUNTER 2023-10-19 11:03 | Emergency (ER) | payer MEDICARE, MEDICAID ==
[~2023-10-19] VITALS: Ht 177.8 cm; Wt 66.0 kg
[~2023-10-19 11:03] MED LIST changes: +ACET325C5 PO; +ASPI81CH33 PO; +CEFD1CAP9 PO; +CLIN150C17 PO; +LOPR1TAB6 PO; +METR-265 PO; +PRIL20TA2 PO; +PROBCAP2 PO; +VITAMIN D PO
[2023-10-19 12:48] LABS: HEMATOCRIT 34.5 % (42.0-52.0); HEMOGLOBIN 11.2 g/dl (13.5-17.5); MEAN CORPUSCULAR HEMOGLOBIN 28.6 pg (27.0-33.0); MEAN CORPUSCULAR HGB CONC 32.5 g/dl (32.0-36.5); MEAN CORPUSCULAR VOLUME 88.2 fl (80.0-96.0); PLATELET COUNT, AUTOMATED 281 10^3/uL (150-450); RED BLOOD COUNT 3.91 10^6/uL (4.30-6.10); WHITE BLOOD COUNT 5.6 10^3/uL (4.0-10.0)
[2023-10-19 13:16] LABS: AMPHETAMINES LEVEL URINE NEGATIVE (NEGATIVE); BARBITURATES URINE NEGATIVE (NEGATIVE); BENZODIAZEPINES URINE NEGATIVE (NEGATIVE); CANNABINOIDS URINE NEGATIVE (NEGATIVE); COCAINE METABOLITE URINE NEGATIVE (NEGATIVE); METHADONE URINE NEGATIVE (NEGATIVE); OPIATES URINE NEGATIVE (NEGATIVE); PHENCYCLIDINE URINE NEGATIVE (NEGATIVE)
[2023-10-19 13:18] LABS: ETHYL ALCOHOL (ETHANOL) 0.068 % (0.000-0.010)
[2023-10-19 13:20] LABS: ALBUMIN 3.6 G/DL (3.2-5.2); ALKALINE PHOSPHATASE 118 U/L (46-116); ALT/SGPT 16 U/L (7.0-40); AST/SGOT 14 U/L (<34); BILIRUBIN,DIRECT 0.1 MG/DL (<0.4); BILIRUBIN,TOTAL 0.3 MG/DL (0.3-1.2); BLOOD UREA NITROGEN 12 MG/DL (9-23); CALCIUM LEVEL 9.3 MG/DL (8.3-10.6); CARBON DIOXIDE LEVEL 24 MMOL/L (20-31); CHLORIDE LEVEL 110 MMOL/L (98-107); GLOMERULAR FILTRATION RATE > 60.0 (>49); GLUCOSE, FASTING 75 MG/DL (74-106); POTASSIUM SERUM 3.6 MMOL/L (3.5-5.1); SALICYLATE LEVEL < 3.0 MG/DL (<30); SODIUM LEVEL 144 MMOL/L (136-145); TOTAL PROTEIN 7.3 G/DL (5.7-8.2)
[2023-10-19 13:22] LABS: THYROID STIMULATING HORMONE 3.387 uIU/ML (0.55-4.78)
[2023-10-19 16:01] VITALS: BP 144/90; TEMP 98.5; O2SAT 100
== END 2023-10-19 16:10 | disposition home or self-care (01) ==
LOC: M ED 11:03
DX: F32.A Depression, unspecified (principal); I48.91 Unspecified atrial fibrillation; K21.9 Gastro-esophageal reflux disease without esophagitis; F17.200 Nicotine dependence, unspecified, uncomplicated; F10.20 Alcohol dependence, uncomplicated; F12.20 Cannabis dependence, uncomplicated; F43.20 Adjustment disorder, unspecified; R45.851 Suicidal ideations; R45.850 Homicidal ideations; Z88.0 Allergy status to penicillin

== ENCOUNTER 2023-11-17 11:50 | Inpatient (IN) | payer MEDICARE, MEDICAID ==
[~2023-11-17] VITALS: Ht 177.8 cm; Wt 68.4 kg
[2023-11-17 12:34] LABS: BASO % 0.2 % (0.0-1.0); EOS % 0.4 % (0.0-3.0); HEMATOCRIT 35.7 % (42.0-52.0); HEMOGLOBIN 11.3 g/dl (13.5-17.5); LYMPH % 20.4 % (24.0-44.0); MEAN CORPUSCULAR HGB CONC 31.7 g/dl (32.0-36.5); MEAN CORPUSCULAR VOLUME 88.4 fl (80.0-96.0); MONO # 0.6 10^3/uL (0.0-0.8); NEUTROPHILS # 3.2 10^3/uL (1.5-8.5); NEUTROPHILS % 66.6 % (36.0-66.0); PLATELET COUNT, AUTOMATED 214 10^3/uL (150-450); RED BLOOD COUNT 4.04 10^6/uL (4.30-6.10); WHITE BLOOD COUNT 4.8 10^3/uL (4.0-10.0)
[2023-11-17 12:54] LABS: ETHYL ALCOHOL (ETHANOL) 0.239 % (0.000-0.010)
[2023-11-17 12:55] LABS: ALBUMIN 3.5 G/DL (3.2-5.2); ALKALINE PHOSPHATASE 88 U/L (46-116); ALT/SGPT 13 U/L (7.0-40); AST/SGOT 12 U/L (<34); BILIRUBIN,DIRECT < 0.1 MG/DL (<0.4); BILIRUBIN,TOTAL 0.3 MG/DL (0.3-1.2); BLOOD UREA NITROGEN 10 MG/DL (9-23); CALCIUM LEVEL 8.4 MG/DL (8.3-10.6); CARBON DIOXIDE LEVEL 25 MMOL/L (20-31); CHLORIDE LEVEL 114 MMOL/L (98-107); CPK CREATINE PHOSPHOKINASE 102 U/L (46-171); GLOMERULAR FILTRATION RATE > 60.0 (>49); GLUCOSE, FASTING 124 MG/DL (74-106); POTASSIUM SERUM 3.7 MMOL/L (3.5-5.1); SALICYLATE LEVEL < 3.0 MG/DL (<30); SODIUM LEVEL 147 MMOL/L (136-145); TOTAL PROTEIN 6.8 G/DL (5.7-8.2)
[2023-11-17 12:57] LABS: THYROID STIMULATING HORMONE 1.173 uIU/ML (0.55-4.78)
[2023-11-17 13:11] LABS: MAGNESIUM LEVEL 1.9 MG/DL (1.8-2.4)
[2023-11-17 13:16] LABS: FREE T4 1.15 NG/DL (0.89-1.76)
[2023-11-17 13:27] LABS: AMPHETAMINES LEVEL URINE NEGATIVE (NEGATIVE)
[2023-11-17 13:28] LABS: BARBITURATES URINE NEGATIVE (NEGATIVE); BENZODIAZEPINES URINE NEGATIVE (NEGATIVE); COCAINE METABOLITE URINE NEGATIVE (NEGATIVE); METHADONE URINE NEGATIVE (NEGATIVE); OPIATES URINE NEGATIVE (NEGATIVE); PHENCYCLIDINE URINE NEGATIVE (NEGATIVE)
[2023-11-17] MEDS ORDERED: LORazepam 2 MG TAB PO PRN ×2 (13:40→21:55)
[2023-11-17 13:48] LABS: CANNABINOIDS URINE POSITIVE (NEGATIVE)
[2023-11-17] MEDS: MULTIVITAMINS/MINERALS THERAP 1 TAB PO SCH (15:17)
[2023-11-17] MEDS: FOLIC ACID 1MG TAB PO SCH (15:17)
[2023-11-17] MEDS: THIAMINE 100 MG TAB PO SCH (15:17)
[2023-11-17] MEDS: METOPROLOL TART 50 MG TAB PO ONE ×2 (16:44→19:21)
[2023-11-17] MEDS ORDERED: MAALOX 30 ML SUSP *UDC PO PRN (21:30)
[2023-11-17] MEDS ORDERED: ACETAMINOPHEN TAB 650MG DOSE (2X325MG) PO PRN (21:30)
[2023-11-17] MEDS ORDERED: MOM 30ML SUSPENSION UDC PO PRN (21:30)
[2023-11-17] MEDS ORDERED: MULT-40 PO (21:58)
[2023-11-17] MEDS ORDERED: TRAZ-186 PO (21:58)
[2023-11-17] MEDS ORDERED: NEXI20CA PO (21:58)
[2023-11-17] MEDS ORDERED: HOME MED LIST COMPLETE! XX SCH (22:00)
[2023-11-17 22:26] VITALS: BP 140/89; O2SAT 99
[2023-11-18] VITALS (7 sets, daily range): BP systolic 129–152; BP diastolic 80–93; TEMP 97.6–97.9; O2SAT 98
[2023-11-18 08:10] LABS: HEMOGLOBIN 11.3 g/dl (13.5-17.5); MEAN CORPUSCULAR HEMOGLOBIN 28.5 pg (27.0-33.0); MEAN CORPUSCULAR HGB CONC 32.3 g/dl (32.0-36.5); MEAN CORPUSCULAR VOLUME 88.2 fl (80.0-96.0); PLATELET COUNT, AUTOMATED 217 10^3/uL (150-450); RED BLOOD COUNT 3.97 10^6/uL (4.30-6.10); WHITE BLOOD COUNT 6.9 10^3/uL (4.0-10.0)
[2023-11-18] MEDS: FOLIC ACID 1MG TAB PO SCH (08:20)
[2023-11-18] MEDS: MULTIVITAMINS/MINERALS THERAP 1 TAB PO SCH (08:21)
[2023-11-18] MEDS: THIAMINE 100 MG TAB PO SCH (08:36)
[2023-11-18 08:38] LABS: ALBUMIN 3.6 G/DL (3.2-5.2); ALKALINE PHOSPHATASE 97 U/L (46-116); ALT/SGPT 12 U/L (7.0-40); AST/SGOT 13 U/L (<34); BILIRUBIN,TOTAL 0.9 MG/DL (0.3-1.2); BLOOD UREA NITROGEN 12 MG/DL (9-23); CALCIUM LEVEL 9.3 MG/DL (8.3-10.6); CARBON DIOXIDE LEVEL 28 MMOL/L (20-31); CHLORIDE LEVEL 105 MMOL/L (98-107); CREATININE FOR GFR 0.82 MG/DL (0.70-1.30); GLOMERULAR FILTRATION RATE > 60.0 (>49); GLUCOSE, FASTING 141 MG/DL (74-106); SODIUM LEVEL 137 MMOL/L (136-145); TOTAL PROTEIN 7.1 G/DL (5.7-8.2)
[2023-11-18] MEDS ORDERED: OLANZapine ORAL DISINTEGRATING TAB 5MG PO PRN (10:20)
[2023-11-18] MEDS: PANTOPRAZOLE 40MG TAB (PROTONIX) PO SCH (11:47)
[2023-11-18] MEDS: lamoTRIgine 25MG TAB PO SCH (11:47)
[2023-11-18] MEDS: METOPROLOL TART 50 MG TAB PO SCH (11:47)
[2023-11-18] MEDS: APIXABAN 5 MG TAB (ELIQUIS) PO SCH (20:36)
[2023-11-18] MEDS: diphenhydrAMINE 25MG CAP PO PRN (20:36)
[2023-11-18] MEDS: traZODone 50 MG TAB PO PRN (20:36)
[2023-11-18] MEDS: IBUPROFEN 400MG TAB PO PRN (21:40)
[2023-11-19 06:00] VITALS: BP 142/92
[2023-11-19 06:23] VITALS: BP 142/92; TEMP 97.2; O2SAT 94
[2023-11-19] MEDS: LIDOCAINE 5% (LIDODERM) PATCH TD SCH (12:54)
[2023-11-19 14:21] VITALS: BP 113/72; TEMP 98.7; O2SAT 100
[2023-11-19 20:00] VITALS: BP 143/88
[2023-11-19 20:10] VITALS: BP 143/88
[2023-11-20 06:30] VITALS: BP 154/65; TEMP 97.2; O2SAT 96
[2023-11-20 06:40] VITALS: BP 153/65
[2023-11-20 08:15] VITALS: BP 139/81
[2023-11-20] MEDS: PILL CUTTER 1 EACH XX PRN (08:15)
[2023-11-20] MEDS: PANTOPRAZOLE 20 MG TAB PO SCH (09:00)
[2023-11-20] MEDS ORDERED: LOPR1TAB6 PO (11:42)
[2023-11-20] MEDS ORDERED: NEXI20CA PO (11:42)
[2023-11-20] MEDS ORDERED: LAMI25TA PO (11:42)
[2023-11-20] MEDS ORDERED: TRAZ-186 PO (11:42)
[2023-11-20] MEDS ORDERED: LIDO5TD TD (11:42)
[2023-11-20] MEDS ORDERED: MULT-40 PO (11:42)
[2023-11-20] MEDS ORDERED: FOLI1TAB11 PO (11:42)
[2023-11-20] MEDS ORDERED: Multivitamins PO (11:42)
[2023-11-20] MEDS ORDERED: ELIQ5TAB PO (11:42)
== END 2023-11-20 13:15 | disposition home or self-care (01) | DRG 882 ==
LOC: M ED 11:50 → EDBD 11:50 → M ED INP 21:29 → M PSY 22:27
PROVIDERS: ADMIT Student in an Organized Health Care Education/Training Program; ATTEND Student in an Organized Health Care Education/Training Program
DX: F43.23 Adjustment disorder with mixed anxiety and depressed mood (principal); F10.24 Alcohol dependence with alcohol-induced mood disorder; Z59.01 Sheltered homelessness; E87.0 Hyperosmolality and hypernatremia; F17.210 Nicotine dependence, cigarettes, uncomplicated; F12.10 Cannabis abuse, uncomplicated; I48.91 Unspecified atrial fibrillation; E03.9 Hypothyroidism, unspecified; I10 Essential (primary) hypertension; M19.90 Unspecified osteoarthritis, unspecified site; K21.9 Gastro-esophageal reflux disease without esophagitis; G89.29 Other chronic pain; E86.0 Dehydration; E87.8 Other disorders of electrolyte and fluid balance, not elsewhere classified; Z91.51 Personal history of suicidal behavior; Z79.899 Other long term (current) drug therapy; Z88.0 Allergy status to penicillin

== ENCOUNTER 2023-12-18 15:53 | Emergency (ER) | payer MEDICARE, MEDICAID ==
[~2023-12-18] VITALS: Ht 177.8 cm; Wt 74.3 kg
[2023-12-18 15:53] VITALS: BP 143/92; TEMP 97.5; O2SAT 100
[~2023-12-18 15:53] MED LIST changes: +ELIQ5TAB PO; +LAMI25TA PO; +LIDO5TD TD; +MULT-40 PO; +Multivitamins PO; +NEXI20CA PO; +TRAZ-186 PO
== END 2023-12-18 18:00 | disposition left against medical advice (07) ==
LOC: M ED 15:53
DX: Z53.21 Procedure and treatment not carried out due to patient leaving prior to being seen by health care provider (principal)

== ENCOUNTER 2023-12-19 07:38 | Emergency (ER) | payer MEDICARE, MEDICAID ==
[~2023-12-19] VITALS: Ht 180.3 cm; Wt 69.2 kg
[2023-12-19 09:32] LABS: BASO % 0.1 % (0.0-1.0); EOS % 0.2 % (0.0-3.0); HEMATOCRIT 37.5 % (42.0-52.0); HEMOGLOBIN 11.9 g/dl (13.5-17.5); LYMPH # 0.5 10^3/uL (1.5-5.0); LYMPH % 6.6 % (24.0-44.0); MEAN CORPUSCULAR HEMOGLOBIN 27.5 pg (27.0-33.0); MEAN CORPUSCULAR HGB CONC 31.7 g/dl (32.0-36.5); MEAN CORPUSCULAR VOLUME 86.8 fl (80.0-96.0); MONO # 0.7 10^3/uL (0.0-0.8); NEUTROPHILS # 6.9 10^3/uL (1.5-8.5); NEUTROPHILS % 84.5 % (36.0-66.0); PLATELET COUNT, AUTOMATED 242 10^3/uL (150-450); RED BLOOD COUNT 4.32 10^6/uL (4.30-6.10); WHITE BLOOD COUNT 8.1 10^3/uL (4.0-10.0)
[2023-12-19 09:56] LABS: AMPHETAMINES LEVEL URINE NEGATIVE (NEGATIVE); BARBITURATES URINE NEGATIVE (NEGATIVE); BENZODIAZEPINES URINE NEGATIVE (NEGATIVE); COCAINE METABOLITE URINE NEGATIVE (NEGATIVE); ETHYL ALCOHOL (ETHANOL) 0.004 % (0.000-0.010); METHADONE URINE NEGATIVE (NEGATIVE); OPIATES URINE NEGATIVE (NEGATIVE); PHENCYCLIDINE URINE NEGATIVE (NEGATIVE)
[2023-12-19 09:57] LABS: SALICYLATE LEVEL < 3.0 MG/DL (<30)
[2023-12-19 09:58] LABS: ALKALINE PHOSPHATASE 111 U/L (46-116); ALT/SGPT 17 U/L (7.0-40); AST/SGOT 19 U/L (<34); BILIRUBIN,DIRECT 0.1 MG/DL (<0.4); BILIRUBIN,TOTAL 0.5 MG/DL (0.3-1.2); BLOOD UREA NITROGEN 9 MG/DL (9-23); CALCIUM LEVEL 9.3 MG/DL (8.3-10.6); CANNABINOIDS URINE POSITIVE (NEGATIVE); CARBON DIOXIDE LEVEL 24 MMOL/L (20-31); CHLORIDE LEVEL 108 MMOL/L (98-107); CREATININE FOR GFR 0.73 MG/DL (0.70-1.30); GLOMERULAR FILTRATION RATE > 60.0 (>49); GLUCOSE, FASTING 101 MG/DL (74-106); POTASSIUM SERUM 4.1 MMOL/L (3.5-5.1); SODIUM LEVEL 138 MMOL/L (136-145); TOTAL PROTEIN 7.9 G/DL (5.7-8.2)
[2023-12-19 09:59] LABS: THYROID STIMULATING HORMONE 3.617 uIU/ML (0.55-4.78)
[2023-12-19 10:00] LABS: CPK CREATINE PHOSPHOKINASE 197 U/L (46-171)
[2023-12-19 10:15] LABS: OSMOLALITY SERUM 295 MOSM/KG (280-301)
[2023-12-19] MEDS ORDERED: HOME MED LIST COMPLETE! XX SCH (10:35)
[2023-12-19 10:56] VITALS: BP 167/84
[2023-12-19] MEDS: METOPROLOL TART 50 MG TAB PO ONE (10:56)
[2023-12-19] MEDS: THIAMINE 100 MG TAB PO SCH (10:56)
[2023-12-19] MEDS: LORazepam 2 MG TAB PO PRN (10:57)
[2023-12-19 16:08] VITALS: BP 120/82; TEMP 97.3; O2SAT 98
[2023-12-20] MEDS ORDERED: MULTIVITAMINS/MINERALS THERAP 1 TAB PO SCH (09:00)
[2023-12-20] MEDS ORDERED: FOLIC ACID 1MG TAB PO SCH (09:00)
== END 2023-12-19 16:18 | disposition short-term general hospital (02) ==
LOC: M ED 07:38
DX: F10.130 Alcohol abuse with withdrawal, uncomplicated (principal); I10 Essential (primary) hypertension; E07.9 Disorder of thyroid, unspecified; K21.9 Gastro-esophageal reflux disease without esophagitis; R56.9 Unspecified convulsions; F17.200 Nicotine dependence, unspecified, uncomplicated; Z79.01 Long term (current) use of anticoagulants; Z79.899 Other long term (current) drug therapy; Z88.0 Allergy status to penicillin

== ENCOUNTER → 2023-12-24 | Outpatient (REF) | payer MEDICARE, MEDICAID ==
[2023-12-25 13:35] LABS: CHOLESTEROL RISK RATIO 3.58 (<5); HDL CHOLESTEROL 46.3 MG/DL (>40); LDL CHOLESTEROL 102.3 MG/DL (<100); NON-HDL-C 119.7 MG/DL; PERCENT SATURATION 3.9 % (19.7-50.0)
[2023-12-25 13:41] LABS: FOLATE 23.1 NG/ML (>5.4)
== END ==
LOC: M LAB REF 12:16
PROVIDERS: ATTEND Nurse Practitioner Family
DX: D64.9 Anemia, unspecified (principal); Z12.11 Encounter for screening for malignant neoplasm of colon

== ENCOUNTER 2025-02-03 10:37 | Emergency (ER) | payer MEDICARE, MEDICAID ==
[~2025-02-03] VITALS: Ht 177.8 cm; Wt 65.9 kg
[~2025-02-03 10:37] MED LIST changes: +GABA-1172 PO; +GABA-1490 PO; -GABA-282 PO; -GABA600T4 PO
[2025-02-03] MEDS: ACETAMINOPHEN 500 MG TAB PO ONE (13:01)
[2025-02-03] MEDS ORDERED: ACET-907 PO (14:01)
[2025-02-03 14:15] VITALS: BP 149/94; TEMP 97.6; O2SAT 100
== END 2025-02-03 14:15 | disposition home or self-care (01) ==
LOC: M ED 10:37
DX: M71.21 Synovial cyst of popliteal space [Baker], right knee (principal); I48.91 Unspecified atrial fibrillation; I10 Essential (primary) hypertension; F17.200 Nicotine dependence, unspecified, uncomplicated; F12.10 Cannabis abuse, uncomplicated; Z79.899 Other long term (current) drug therapy; Z88.0 Allergy status to penicillin

== ENCOUNTER 2025-03-14 09:56 | Emergency (ER) | payer MEDICARE, MEDICAID ==
[~2025-03-14] VITALS: Ht 177.8 cm; Wt 63.9 kg
[~2025-03-14 09:56] MED LIST changes: +ACET-907 PO
[2025-03-14 10:01] VITALS: TEMP 97
[2025-03-14 10:15] VITALS: BP 152/95; O2SAT 100
[2025-03-14] MEDS ORDERED: CEPH500C PO (10:36)
== END 2025-03-14 10:51 | disposition home or self-care (01) ==
LOC: EDBD 09:56 → M ED 09:56
DX: L72.3 Sebaceous cyst (principal); I48.91 Unspecified atrial fibrillation; R56.9 Unspecified convulsions; I10 Essential (primary) hypertension; F10.10 Alcohol abuse, uncomplicated; F17.200 Nicotine dependence, unspecified, uncomplicated